=== PATIENT | female | born 1960 | race African-American/Black ===

== ENCOUNTER 2020-01-22 21:30 | Inpatient (IN) | payer MEDICAID ==
[~2020-01-22] VITALS: Ht 165.1 cm; Wt 72.8 kg
[2020-01-22 22:23] LABS: HEMOGLOBIN 8.3 g/dL (12.0-16.0)
[2020-01-22 22:32] LABS: HEMATOCRIT 26.7 % (36-46); MEAN CORPUSCULAR HEMOGLOBIN 29.7 pg (26.0-34.0); MEAN CORPUSCULAR HGB CONC 31.1 G/dL (31.0-37.0); MEAN CORPUSCULAR VOLUME 96 fL (80-100); RED CELL DISTRIBUTION WIDTH 24.5 % (11.5-14.5)
[2020-01-22 22:37] LABS: ALANINE AMINOTRANSFERASE 71 U/L (12-78); ALKALINE PHOSPHATASE 245 U/L (46-116); ANION GAP 13 mmol/L (8-16); ASPARTATE AMINOTRANSFERASE 154 U/L (15-37); BILIRUBIN,TOTAL 5.9 mg/dL (0.1-1.0); CALCIUM, TOTAL 8.8 mg/dL (8.8-10.5); CARBON DIOXIDE 25 mmol/L (22-29); CHLORIDE 85 mmol/L (98-107); CREATININE 2.36 mg/dL (0.60-1.30); GLOMERULAR FILTR. RATE CALC 26 mL/min (>60); INR 2.4 (0.9-1.1); PROTHROMBIN TIME 23.9 SEC (9.4-11.6); TOTAL PROTEIN, SERUM 6.9 g/dL (6.4-8.2); UREA NITROGEN, BLOOD 16 mg/dL (7-18)
[2020-01-22 22:45] LABS: SODIUM SERUM 123 mmol/L (136-145)
[2020-01-22] MEDS ORDERED: MORPHINE SULFATE 4 MG/ML SYRINGE IVP ONE (22:45)
[2020-01-22] MEDS: SODIUM CHLORIDE 0.9% 1,000 ML IV ONE ×2 (22:50→22:54)
[2020-01-22 22:53] LABS: GLUCOSE,RANDOM 1173 mg/dL (70-110)
[2020-01-22 23:12] LABS: LIPASE 609 U/L (73-393)
[2020-01-22 23:26] LABS: PLATELET COUNT (AUTO) 32 K/uL (150-450)
[2020-01-22 23:28] LABS: BAND NEUTROPHILS % (MANUAL) 22 % (0-5); LYMPHOCYTES % (MANUAL) 14 % (22-44); MONOCYTES % (MANUAL) 3 % (2-9); SEGMENTED NEUTROPHILS % 61 % (40-70)
[2020-01-22] MEDS ORDERED: VANCOMYCIN HCL 1 GM/D5% WATER 200 ML IV ONE (23:30)
[2020-01-22] MEDS ORDERED: CefTRIAXone 1 GM/DEXTROSE 50 ML IV ONE (23:30)
[2020-01-22 23:36] LABS: APPEARANCE,URINE CLEAR (CLEAR); BILIRUBIN,URINE NEGATIVE (NEGATIVE); GLUCOSE, URINE (UA) >=1000 mg/dL (NEGATIVE); KETONES,URINE NEGATIVE (NEGATIVE); LEUKOCYTE ESTERASE ,URINE SMALL (NEGATIVE); NITRATE,URINE NEGATIVE (NEGATIVE); OCCULT BLOOD,URINE LARGE (NEGATIVE); PH,URINE 6.5 (5.0-8.0); PROTEIN,URINE NEGATIVE (NEGATIVE)
[2020-01-22 23:44] LABS: BACTERIA,URINE Rare /HPF (None Seen); SQUAMOUS EPITHELIAL CELL,UR Few /LPF (None Seen)
[2020-01-22] MEDS ORDERED: SODIUM CHLORIDE 0.9% 1,000 ML IV ONE (23:45)
[2020-01-23] VITALS (12 sets, daily range): BP systolic 70–163; BP diastolic 38–71
[2020-01-23 01:10] LABS: LACTIC ACID 7.1 mmol/L (0.4-2.0)
[2020-01-23] MEDS ORDERED: INSULIN REGULAR, HUMAN 100 UNITS/ML IVP ONE ×2 (01:30→03:15)
[2020-01-23 01:36] LABS: GLUCOSE,POINT OF CARE > 600 MG/DL (70-110)
[2020-01-23] MEDS ORDERED: SODIUM CHLORIDE 0.45% 1,000 ML IV PRN (03:06)
[2020-01-23] MEDS ORDERED: SODIUM CHLORIDE 0.9% 1,000 ML IV SCH (03:06)
[2020-01-23] MEDS ORDERED: POTASSIUM CHL 20 MEQ/0.45% NS 1,000 ML IV PRN (03:06)
[2020-01-23] MEDS ORDERED: INSULIN REGULAR, HUMAN 100 UNITS in SODIUM CHLORIDE 0.9% 99 ML IV PRN ×4 (03:06→05:11)
[2020-01-23] MEDS ORDERED: DEXTROSE 5%-0.45% SODIUM CHL 1,000 ML IV PRN (03:06)
[2020-01-23] MEDS ORDERED: POTASSIUM CHLORIDE 40 MEQ in SODIUM CHLORIDE 0.45% 1,000 ML IV PRN (03:06)
[2020-01-23] MEDS ORDERED: INSULIN REGULAR, HUMAN 100 UNITS/ML IVP PRN (03:15)
[2020-01-23] MEDS ORDERED: ACETAMINOPHEN 325 MG TABLET PO PRN ×2 (03:15→04:15)
[2020-01-23] MEDS ORDERED: ONDANSETRON HCL 4 MG/2 ML VIAL IVP PRN ×2 (03:15→04:15)
[2020-01-23] MEDS ORDERED: 0.9% SODIUM CHLORIDE 10 ML SYRINGE IVP PRN ×2 (03:15→04:15)
[2020-01-23] MEDS ORDERED: DEXTROSE 50%-WATER 25 GM/50 ML SYRINGE IVP PRN ×4 (03:15→17:00)
[2020-01-23] MEDS ORDERED: MAGNESIUM HYDROXIDE SUSPENSION 30 ML UDCUP PO PRN (04:15)
[2020-01-23 04:35] LABS: GLUCOSE,POINT OF CARE > 600 MG/DL (70-110)
[2020-01-23] MEDS: LEVOFLOXACIN 500 MG/D5% WATER 100 ML IV SCH (04:53)
[2020-01-23 04:55] LABS: GLUCOSE,POINT OF CARE > 600 MG/DL (70-110)
[2020-01-23 05:00] LABS: CALCIUM, TOTAL 8.3 mg/dL (8.8-10.5); CREATININE 2.56 mg/dL (0.60-1.30)
[2020-01-23] MEDS ORDERED: DEXTROSE 5%-WATER 1,000 ML IV SCH (05:11)
[2020-01-23] MEDS: PANTOPRAZOLE SODIUM 80 MG in SODIUM CHLORIDE 0.9% 100 ML IV SCH ×2 (05:42→18:18)
[2020-01-23] MEDS ORDERED: POTASSIUM CHLORIDE 20 MEQ ER TABLET PO ONE (06:00)
[2020-01-23 06:47] LABS: GLUCOSE,POINT OF CARE 479 MG/DL (70-110)
[2020-01-23 07:50] LABS: GLUCOSE,POINT OF CARE 415 MG/DL (70-110)
[2020-01-23 08:23] LABS: HEMATOCRIT 21.2 % (36-46); HEMOGLOBIN 7.1 g/dL (12.0-16.0); MEAN CORPUSCULAR HEMOGLOBIN 30.2 pg (26.0-34.0); MEAN CORPUSCULAR HGB CONC 33.4 G/dL (31.0-37.0); MEAN CORPUSCULAR VOLUME 90 fL (80-100); RED BLOOD CELL COUNT(AUTO) 2.35 MIL/uL (4.00-5.20); RED CELL DISTRIBUTION WIDTH 24.2 % (11.5-14.5)
[2020-01-23 08:29] LABS: PLATELET COUNT (AUTO) 19 K/uL (150-450)
[2020-01-23 08:43] LABS: CALCIUM, TOTAL 8.4 mg/dL (8.8-10.5); CREATININE 2.67 mg/dL (0.60-1.30)
[2020-01-23 08:53] LABS: BAND NEUTROPHILS % (MANUAL) 20 % (0-5); LYMPHOCYTES % (MANUAL) 9 % (22-44); MONOCYTES % (MANUAL) 4 % (2-9); SEGMENTED NEUTROPHILS % 67 % (40-70)
[2020-01-23 08:56] LABS: WBC MORPHOLOGY TOXIC GRANULATION
[2020-01-23 08:58] LABS: GLUCOSE,POINT OF CARE 406 MG/DL (70-110)
[2020-01-23] MEDS ORDERED: SODIUM CHLORIDE 0.9% 250 ML IV ONE (09:30)
[2020-01-23] MEDS ORDERED: SODIUM CHLORIDE 0.45% 1,000 ML IV ONE (09:30)
[2020-01-23 09:56] LABS: GLUCOSE,POINT OF CARE 370 MG/DL (70-110)
[2020-01-23] MEDS: OCTREOTIDE ACETATE 500 MCG in DEXTROSE 5%-WATER 97.5 ML IV SCH ×2 (10:32→18:20)
[2020-01-23 10:53] LABS: GLUCOSE,POINT OF CARE 319 MG/DL (70-110)
[2020-01-23] MEDS ORDERED: NOREPINEPHRINE 4 MG/D5%-WATER 250 ML IV PRN (11:11)
[2020-01-23] MEDS ORDERED: POTASSIUM CHL 20 MEQ/0.45% NS 1,000 ML IV ONE (11:15)
[2020-01-23] MEDS ORDERED: INSULIN LISPRO 100 UNITS/ML SQ PRN (11:15)
[2020-01-23] MEDS ORDERED: SODIUM CHLORIDE 0.9% 1,000 ML ONE (11:29)
[2020-01-23 12:30] LABS: CREATININE 2.71 mg/dL (0.60-1.30); MAGNESIUM 1.1 mg/dL (1.80-2.40); PHOSPHORUS 1.5 mg/dL (2.5-4.9)
[2020-01-23] MEDS ORDERED: VASOPRESSIN 40 UNITS in DEXTROSE 5%-WATER 98 ML IV PRN ×4 (14:00)
[2020-01-23] MEDS ORDERED: PHENYLEPHRINE HCL 400 MG in DEXTROSE 5%-WATER 210 ML IV PRN ×4 (14:00)
[2020-01-23 16:40] LABS: ALBUMIN 1.8 g/dL (3.4-5.0); BILIRUBIN,TOTAL 5.3 mg/dL (0.1-1.0); CALCIUM, TOTAL 8.1 mg/dL (8.8-10.5); CREATININE 2.9 mg/dL (0.60-1.30); POTASSIUM 4.8 mmol/L (3.5-5.1); TOTAL PROTEIN, SERUM 6.1 g/dL (6.4-8.2)
[2020-01-23] MEDS: INSULIN LISPRO 100 UNITS/ML SQ PRN (17:07)
[2020-01-23] MEDS: OxyCODONE HCL/ACETAMINOPHEN 5-325 MG TABLET PO PRN ×2 (17:24→21:47)
[2020-01-23 17:39] LABS: GLUCOSE,POINT OF CARE 292 MG/DL (70-110)
[2020-01-23] MEDS: ALBUMIN HUMAN 25%-25GM/100ML 100 ML IV SCH (21:47)
[2020-01-23] MEDS: SODIUM CHLORIDE 0.9% 1,000 ML IV SCH (21:48)
[2020-01-23 23:48] LABS: APPEARANCE,URINE TURBID (CLEAR); GLUCOSE, URINE (UA) 100 mg/dL (NEGATIVE); KETONES,URINE 15 mg/dL (NEGATIVE); LEUKOCYTE ESTERASE ,URINE LARGE (NEGATIVE); NITRATE,URINE POSITIVE (NEGATIVE); OCCULT BLOOD,URINE LARGE (NEGATIVE); PROTEIN,URINE SEE CONFIRM (NEGATIVE)
[2020-01-23 23:49] LABS: BILIRUBIN,URINE PRELIM. POSITIVE (NEGATIVE); CREATININE,URINE RANDOM 237.5 mg/dL (30.0-125.0); SODIUM,URINE RANDOM 22 mmol/l (20-110)
[2020-01-23 23:57] LABS: BACTERIA,URINE Moderate /HPF (None Seen); RBC,URINE 26-50 /HPF (0-2); WBC,URINE 26-50 /HPF (0-5)
[2020-01-23 23:58] LABS: SQUAMOUS EPITHELIAL CELL,UR Moderate /LPF (None Seen); SULFOSALICYLIC ACID,URINE 1+ (Negative)
[2020-01-24] VITALS (25 sets, daily range): BP systolic 97–142; BP diastolic 36–70
[2020-01-24] MEDS: CefTRIAXone 1 GM/DEXTROSE 50 ML IV SCH ×2 (00:28→22:45)
[2020-01-24] MEDS: INSULIN LISPRO 100 UNITS/ML SQ PRN ×4 (01:35→20:06)
[2020-01-24] MEDS: PANTOPRAZOLE SODIUM 80 MG in SODIUM CHLORIDE 0.9% 100 ML IV SCH ×3 (02:50→20:09)
[2020-01-24] MEDS: ALBUMIN HUMAN 25%-25GM/100ML 100 ML IV SCH ×4 (02:50→20:08)
[2020-01-24 04:29] LABS: GLUCOSE,POINT OF CARE 222 MG/DL (70-110)
[2020-01-24] MEDS: LEVOFLOXACIN 500 MG/D5% WATER 100 ML IV SCH (05:41)
[2020-01-24 06:19] LABS: CALCIUM, TOTAL 7.4 mg/dL (8.8-10.5); CREATININE 2.95 mg/dL (0.60-1.30); POTASSIUM 3.6 mmol/L (3.5-5.1)
[2020-01-24 06:57] LABS: BASOPHILS % (AUTO) 0.3 % (0.0-2.0); EOSINOPHILS % (AUTO) 1.2 % (1.0-6.0); LYMPHOCYTES # (AUTO) 1.9 K/uL (1.0-4.8); LYMPHOCYTES % (AUTO) 17.7 % (22.0-44.0); MEAN CORPUSCULAR HEMOGLOBIN 30.4 pg (26.0-34.0); MEAN CORPUSCULAR HGB CONC 34.8 G/dL (31.0-37.0); MEAN CORPUSCULAR VOLUME 88 fL (80-100); MONOCYTES # (AUTO) 0.7 K/uL (0.1-1.0); MONOCYTES % (AUTO) 6.7 % (2.0-9.0); NEUTROPHILS # (AUTO) 7.9 K/uL (1.8-7.7); NEUTROPHILS % (AUTO) 74.1 % (40.0-70.0); PLATELET COUNT (AUTO) 25 K/uL (150-450); RED BLOOD CELL COUNT(AUTO) 2.26 MIL/uL (4.00-5.20); RED CELL DISTRIBUTION WIDTH 22.6 % (11.5-14.5)
[2020-01-24 07:00] LABS: GLUCOSE,POINT OF CARE 201 MG/DL (70-110)
[2020-01-24 07:01] LABS: HEMATOCRIT 19.7 % (36-46); HEMOGLOBIN 6.9 g/dL (12.0-16.0)
[2020-01-24] MEDS: OCTREOTIDE ACETATE 500 MCG in DEXTROSE 5%-WATER 97.5 ML IV SCH ×2 (07:30→16:10)
[2020-01-24] MEDS ORDERED: SODIUM CHLORIDE 0.9% 250 ML IV ONE ×2 (08:33→22:56)
[2020-01-24 08:37] LABS: INR 3.1 (0.9-1.1); PROTHROMBIN TIME 30.8 SEC (9.4-11.6)
[2020-01-24] MEDS: OxyCODONE HCL/ACETAMINOPHEN 5-325 MG TABLET PO PRN ×3 (08:38→22:45)
[2020-01-24] MEDS: SODIUM CHLORIDE 0.9% 1,000 ML IV SCH (09:30)
[2020-01-24 14:49] LABS: GLUCOSE,POINT OF CARE 132 MG/DL (70-110)
[2020-01-24 14:49] LABS: GLUCOSE,POINT OF CARE 150 MG/DL (70-110)
[2020-01-24] MEDS: PHYTONADIONE 10 MG/1 ML AMP SQ SCH (16:12)
[2020-01-24] MEDS ORDERED: LORazepam 2 MG/ML VIAL IVP ONE (16:30)
[2020-01-24 20:19] LABS: GLUCOSE,POINT OF CARE 145 MG/DL (70-110)
[2020-01-24 20:21] LABS: BASOPHILS % (AUTO) 0.5 % (0.0-2.0); EOSINOPHILS % (AUTO) 1.4 % (1.0-6.0); HEMATOCRIT 21.7 % (36-46); HEMOGLOBIN 7.5 g/dL (12.0-16.0); LYMPHOCYTES # (AUTO) 1.1 K/uL (1.0-4.8); LYMPHOCYTES % (AUTO) 16.1 % (22.0-44.0); MEAN CORPUSCULAR HEMOGLOBIN 30.5 pg (26.0-34.0); MEAN CORPUSCULAR HGB CONC 34.5 G/dL (31.0-37.0); MEAN CORPUSCULAR VOLUME 88 fL (80-100); MONOCYTES # (AUTO) 0.8 K/uL (0.1-1.0); MONOCYTES % (AUTO) 11.9 % (2.0-9.0); NEUTROPHILS # (AUTO) 4.9 K/uL (1.8-7.7); NEUTROPHILS % (AUTO) 70.1 % (40.0-70.0); RED BLOOD CELL COUNT(AUTO) 2.45 MIL/uL (4.00-5.20); RED CELL DISTRIBUTION WIDTH 20.9 % (11.5-14.5)
[2020-01-24 20:28] LABS: PLATELET COUNT (AUTO) 19 K/uL (150-450)
[2020-01-24 21:36] LABS: HEMOGLOBIN 6.8 g/dL (12.0-16.0)
[2020-01-25] VITALS (18 sets, daily range): BP systolic 112–155; BP diastolic 50–78
[2020-01-25] MEDS: OCTREOTIDE ACETATE 500 MCG in DEXTROSE 5%-WATER 97.5 ML IV SCH ×2 (03:35→09:27)
[2020-01-25] MEDS: SODIUM CHLORIDE 0.9% 1,000 ML IV SCH ×2 (03:38→14:31)
[2020-01-25] MEDS: ALBUMIN HUMAN 25%-25GM/100ML 100 ML IV SCH ×4 (03:39→19:47)
[2020-01-25] MEDS: INSULIN LISPRO 100 UNITS/ML SQ PRN ×3 (05:06→21:21)
[2020-01-25] MEDS: LEVOFLOXACIN 500 MG/D5% WATER 100 ML IV SCH (05:10)
[2020-01-25] MEDS ORDERED: EPHEDrine SULFATE 50 MG/ML VIAL IM ONE (05:55)
[2020-01-25] MEDS ORDERED: PROPOFOL 1% 20 ML VIAL IVP ONE (05:55)
[2020-01-25] MEDS ORDERED: 0.9% SODIUM CHLORIDE 10 ML VIAL IVP ONE (05:55)
[2020-01-25] MEDS ORDERED: PHENYLEPHRINE HCL 10 MG/ML VIAL IVP ONE (05:55)
[2020-01-25] MEDS ORDERED: LIDOCAINE 1% 10 ML VIAL IM ONE (05:55)
[2020-01-25 06:03] LABS: GLUCOSE,POINT OF CARE 149 MG/DL (70-110)
[2020-01-25 06:24] LABS: BASOPHILS % (AUTO) 0.1 % (0.0-2.0); HEMATOCRIT 21.6 % (36-46); HEMOGLOBIN 7.4 g/dL (12.0-16.0); LYMPHOCYTES # (AUTO) 1.2 K/uL (1.0-4.8); LYMPHOCYTES % (AUTO) 16.3 % (22.0-44.0); MEAN CORPUSCULAR HEMOGLOBIN 30.3 pg (26.0-34.0); MEAN CORPUSCULAR VOLUME 89 fL (80-100); MONOCYTES # (AUTO) 1.2 K/uL (0.1-1.0); MONOCYTES % (AUTO) 15.2 % (2.0-9.0); NEUTROPHILS # (AUTO) 5.2 K/uL (1.8-7.7); NEUTROPHILS % (AUTO) 67.4 % (40.0-70.0); PLATELET COUNT (AUTO) 37 K/uL (150-450); RED BLOOD CELL COUNT(AUTO) 2.43 MIL/uL (4.00-5.20); RED CELL DISTRIBUTION WIDTH 19.6 % (11.5-14.5)
[2020-01-25 06:33] LABS: CREATININE 1.82 mg/dL (0.60-1.30); POTASSIUM 3.3 mmol/L (3.5-5.1)
[2020-01-25 06:47] LABS: INR 2.6 (0.9-1.1); PROTHROMBIN TIME 26.1 SEC (9.4-11.6)
[2020-01-25] MEDS: OxyCODONE HCL/ACETAMINOPHEN 5-325 MG TABLET PO PRN ×3 (06:52→19:46)
[2020-01-25] MEDS: PANTOPRAZOLE SODIUM 80 MG in SODIUM CHLORIDE 0.9% 100 ML IV SCH ×2 (07:42→15:34)
[2020-01-25] MEDS: PHYTONADIONE 10 MG/1 ML AMP SQ SCH (09:26)
[2020-01-25] MEDS ORDERED: *CLINICAL-RENAL DOSING MEDICATIONS CLINICAL ONE (10:15)
[2020-01-25] MEDS: POTASSIUM CHL 10 MEQ/WATER 50 ML IV SCH ×4 (10:31→18:29)
[2020-01-25] MEDS ORDERED: SODIUM CHLORIDE 0.9% 250 ML IV ONE ×2 (10:32→22:18)
[2020-01-25] MEDS: PIPERACILLIN SODIUM/TAZOBACTAM 2.25 GM in DEXTROSE 5%-WATER 50 ML IV SCH ×3 (10:44→21:55)
[2020-01-25] MEDS: RIFAXIMIN 550 MG TABLET PO SCH ×2 (12:27→19:46)
[2020-01-25] MEDS ORDERED: SODIUM CHLORIDE 0.9% 100 ML ONE (14:29)
[2020-01-25 15:55] LABS: ALBUMIN 3.5 g/dL (3.4-5.0); BILIRUBIN,TOTAL 4.7 mg/dL (0.1-1.0); CALCIUM, TOTAL 6.6 mg/dL (8.8-10.5); CREATININE 1.48 mg/dL (0.60-1.30); POTASSIUM 3.3 mmol/L (3.5-5.1); TOTAL PROTEIN, SERUM 6.1 g/dL (6.4-8.2)
[2020-01-25] MEDS: DOCUSATE SODIUM 100 MG CAPSULE PO SCH (20:44)
[2020-01-25] MEDS: SUCRALFATE 1 GM/10 ML SUSPENSION UDCUP PO SCH (21:20)
[2020-01-26] VITALS (9 sets, daily range): BP systolic 134–181; BP diastolic 53–88
[2020-01-26 00:49] LABS: GLUCOSE,POINT OF CARE 151 MG/DL (70-110)
[2020-01-26] MEDS: OCTREOTIDE ACETATE 500 MCG in DEXTROSE 5%-WATER 97.5 ML IV SCH ×2 (01:32→11:20)
[2020-01-26] MEDS: PANTOPRAZOLE SODIUM 80 MG in SODIUM CHLORIDE 0.9% 100 ML IV SCH ×2 (02:06→11:42)
[2020-01-26] MEDS: OxyCODONE HCL/ACETAMINOPHEN 5-325 MG TABLET PO PRN ×4 (02:48→20:55)
[2020-01-26] MEDS: PIPERACILLIN SODIUM/TAZOBACTAM 2.25 GM in DEXTROSE 5%-WATER 50 ML IV SCH ×2 (04:08→11:19)
[2020-01-26] MEDS: SODIUM CHLORIDE 0.9% 1,000 ML IV SCH (04:09)
[2020-01-26] MEDS: LEVOFLOXACIN 500 MG/D5% WATER 100 ML IV SCH (04:49)
[2020-01-26] MEDS: INSULIN LISPRO 100 UNITS/ML SQ PRN ×2 (04:50→21:09)
[2020-01-26] MEDS ORDERED: SODIUM CHLORIDE 0.9% 500 ML IV ONE (05:03)
[2020-01-26 05:06] LABS: BASOPHILS % (AUTO) 0.5 % (0.0-2.0); EOSINOPHILS % (AUTO) 0.9 % (1.0-6.0); HEMATOCRIT 22.4 % (36-46); HEMOGLOBIN 7.5 g/dL (12.0-16.0); LYMPHOCYTES # (AUTO) 1.2 K/uL (1.0-4.8); LYMPHOCYTES % (AUTO) 13.6 % (22.0-44.0); MEAN CORPUSCULAR HEMOGLOBIN 30.2 pg (26.0-34.0); MEAN CORPUSCULAR HGB CONC 33.7 G/dL (31.0-37.0); MEAN CORPUSCULAR VOLUME 90 fL (80-100); MONOCYTES # (AUTO) 1.3 K/uL (0.1-1.0); MONOCYTES % (AUTO) 15.7 % (2.0-9.0); NEUTROPHILS # (AUTO) 5.9 K/uL (1.8-7.7); NEUTROPHILS % (AUTO) 69.3 % (40.0-70.0); PLATELET COUNT (AUTO) 27 K/uL (150-450); RED BLOOD CELL COUNT(AUTO) 2.49 MIL/uL (4.00-5.20); RED CELL DISTRIBUTION WIDTH 20.3 % (11.5-14.5)
[2020-01-26] MEDS: SUCRALFATE 1 GM/10 ML SUSPENSION UDCUP PO SCH ×4 (05:28→23:26)
[2020-01-26 05:37] LABS: ALBUMIN 3.1 g/dL (3.4-5.0); BILIRUBIN,TOTAL 5.2 mg/dL (0.1-1.0); CALCIUM, TOTAL 7.1 mg/dL (8.8-10.5); CREATININE 1.34 mg/dL (0.60-1.30); MAGNESIUM 1.2 mg/dL (1.80-2.40); PHOSPHORUS 1.8 mg/dL (2.5-4.9); POTASSIUM 3.4 mmol/L (3.5-5.1); TOTAL PROTEIN, SERUM 5.7 g/dL (6.4-8.2)
[2020-01-26 07:14] LABS: GLUCOSE,POINT OF CARE 152 MG/DL (70-110)
[2020-01-26] MEDS: DOCUSATE SODIUM 100 MG CAPSULE PO SCH ×2 (08:33→21:00)
[2020-01-26] MEDS: RIFAXIMIN 550 MG TABLET PO SCH ×2 (08:33→20:55)
[2020-01-26] MEDS: ALBUMIN HUMAN 25%-25GM/100ML 100 ML IV SCH ×3 (08:35→16:00)
[2020-01-26] MEDS ORDERED: SODIUM PHOS,M-BASIC-D-BASIC 30 MMOL in DEXTROSE 5%-WATER 250 ML IV ONE (09:00)
[2020-01-26] MEDS ORDERED: MAGNESIUM SULFATE 4 GM/WATER 100 ML IV ONE (09:00)
[2020-01-26] MEDS: PHYTONADIONE 10 MG/1 ML AMP SQ SCH (09:00)
[2020-01-26 09:19] LABS: GLUCOSE,POINT OF CARE 143 MG/DL (70-110)
[2020-01-26] MEDS ORDERED: SODIUM CHLORIDE 0.9% 100 ML ONE ×2 (09:59→16:33)
[2020-01-26] MEDS ORDERED: POTASSIUM CHLORIDE 20 MEQ ER TABLET PO ONE (10:00)
[2020-01-26] MEDS ORDERED: FUROSEMIDE 40 MG/4 ML VIAL IVP ONE (10:00)
[2020-01-26] MEDS ORDERED: LABETALOL HCL 5 MG/ML 20 ML VIAL IVP PRN (13:00)
[2020-01-26 13:14] LABS: CREATININE 1.34 mg/dL (0.60-1.30); POTASSIUM 3.2 mmol/L (3.5-5.1)
[2020-01-26 13:15] LABS: ALBUMIN 3.3 g/dL (3.4-5.0); CALCIUM, TOTAL 7.4 mg/dL (8.8-10.5); TOTAL PROTEIN, SERUM 6.2 g/dL (6.4-8.2)
[2020-01-26] MEDS: PANTOPRAZOLE SODIUM 40 MG/VIAL IVP SCH ×2 (14:32→20:55)
[2020-01-26] MEDS ORDERED: IOVERSOL 350 MG/ML 100 ML VIAL ONE (16:34)
[2020-01-26] MEDS: PIPERACILLIN/TAZO 3.375 GM/D5W 50 ML IV SCH ×2 (18:22→23:26)
[2020-01-26] MEDS: ChlordiazePOXIDE HCL 10 MG CAPSULE PO PRN (21:02)
[2020-01-27] VITALS (12 sets, daily range): BP systolic 130–155; BP diastolic 50–73
[2020-01-27] MEDS: OxyCODONE HCL/ACETAMINOPHEN 5-325 MG TABLET PO PRN ×5 (02:21→23:55)
[2020-01-27 03:46] LABS: GLUCOSE,POINT OF CARE 181 MG/DL (70-110)
[2020-01-27] MEDS: LEVOFLOXACIN 500 MG/D5% WATER 100 ML IV SCH (05:20)
[2020-01-27] MEDS: PIPERACILLIN/TAZO 3.375 GM/D5W 50 ML IV SCH ×4 (05:53→23:19)
[2020-01-27] MEDS: SUCRALFATE 1 GM/10 ML SUSPENSION UDCUP PO SCH ×4 (05:53→21:04)
[2020-01-27 07:17] LABS: CALCIUM, TOTAL 7.2 mg/dL (8.8-10.5); CREATININE 1.36 mg/dL (0.60-1.30)
[2020-01-27 07:21] LABS: GLUCOSE,POINT OF CARE 133 MG/DL (70-110)
[2020-01-27 07:25] LABS: POTASSIUM 2.9 mmol/L (3.5-5.1)
[2020-01-27] MEDS: DOCUSATE SODIUM 100 MG CAPSULE PO SCH ×2 (09:00→21:00)
[2020-01-27] MEDS ORDERED: FUROSEMIDE 40 MG/4 ML VIAL IVP ONE (09:00)
[2020-01-27] MEDS: RIFAXIMIN 550 MG TABLET PO SCH ×2 (09:46→21:04)
[2020-01-27] MEDS: PANTOPRAZOLE SODIUM 40 MG/VIAL IVP SCH ×2 (09:47→21:04)
[2020-01-27] MEDS: PHYTONADIONE 10 MG/1 ML AMP SQ SCH (09:47)
[2020-01-27] MEDS: POTASSIUM CHL 10 MEQ/WATER 50 ML IV SCH ×10 (09:50→23:19)
[2020-01-27 10:00] LABS: BASOPHILS % (AUTO) 0.3 % (0.0-2.0); EOSINOPHILS % (AUTO) 1.2 % (1.0-6.0); HEMATOCRIT 23.3 % (36-46); HEMOGLOBIN 7.7 g/dL (12.0-16.0); LYMPHOCYTES # (AUTO) 2.1 K/uL (1.0-4.8); LYMPHOCYTES % (AUTO) 17.3 % (22.0-44.0); MEAN CORPUSCULAR HEMOGLOBIN 30.1 pg (26.0-34.0); MEAN CORPUSCULAR HGB CONC 33.2 G/dL (31.0-37.0); MEAN CORPUSCULAR VOLUME 91 fL (80-100); MONOCYTES % (AUTO) 16.8 % (2.0-9.0); NEUTROPHILS # (AUTO) 7.6 K/uL (1.8-7.7); NEUTROPHILS % (AUTO) 64.4 % (40.0-70.0); PLATELET COUNT (AUTO) 65 K/uL (150-450); RED BLOOD CELL COUNT(AUTO) 2.57 MIL/uL (4.00-5.20); RED CELL DISTRIBUTION WIDTH 19.9 % (11.5-14.5)
[2020-01-27 16:15] LABS: GLUCOSE,POINT OF CARE 136 MG/DL (70-110)
[2020-01-27] MEDS: INSULIN LISPRO 100 UNITS/ML SQ PRN (20:05)
[2020-01-28] VITALS (10 sets, daily range): BP systolic 115–169; BP diastolic 45–72
[2020-01-28] MEDS: LEVOFLOXACIN 500 MG/D5% WATER 100 ML IV SCH (05:08)
[2020-01-28] MEDS: PIPERACILLIN/TAZO 3.375 GM/D5W 50 ML IV SCH ×4 (05:24→23:34)
[2020-01-28 05:52] LABS: BASOPHILS % (AUTO) 0.3 % (0.0-2.0); EOSINOPHILS % (AUTO) 1.3 % (1.0-6.0); HEMATOCRIT 23.1 % (36-46); HEMOGLOBIN 7.8 g/dL (12.0-16.0); LYMPHOCYTES # (AUTO) 2.8 K/uL (1.0-4.8); LYMPHOCYTES % (AUTO) 18.9 % (22.0-44.0); MEAN CORPUSCULAR HEMOGLOBIN 30.4 pg (26.0-34.0); MEAN CORPUSCULAR HGB CONC 33.6 G/dL (31.0-37.0); MEAN CORPUSCULAR VOLUME 90 fL (80-100); MONOCYTES # (AUTO) 1.8 K/uL (0.1-1.0); MONOCYTES % (AUTO) 12.5 % (2.0-9.0); NEUTROPHILS # (AUTO) 9.8 K/uL (1.8-7.7); PLATELET COUNT (AUTO) 76 K/uL (150-450); RED BLOOD CELL COUNT(AUTO) 2.55 MIL/uL (4.00-5.20); RED CELL DISTRIBUTION WIDTH 21.1 % (11.5-14.5)
[2020-01-28 06:01] LABS: CALCIUM, TOTAL 7.3 mg/dL (8.8-10.5); CREATININE 1.47 mg/dL (0.60-1.30); POTASSIUM 3.3 mmol/L (3.5-5.1)
[2020-01-28 06:13] LABS: PLATELET MORPHOLOGY COMMENT LARGE PLTS PRESENT
[2020-01-28] MEDS: SUCRALFATE 1 GM/10 ML SUSPENSION UDCUP PO SCH ×4 (06:30→20:04)
[2020-01-28 06:45] LABS: GLUCOSE,POINT OF CARE 208 MG/DL (70-110)
[2020-01-28 06:46] LABS: GLUCOSE,POINT OF CARE 170 MG/DL (70-110)
[2020-01-28] MEDS ORDERED: DIATRIZOATE MEGLU/SOD 660/100 MG/ML 120 ML BOTTLE ONE (07:51)
[2020-01-28] MEDS: DOCUSATE SODIUM 100 MG CAPSULE PO SCH ×2 (09:00→19:50)
[2020-01-28] MEDS: PANTOPRAZOLE SODIUM 40 MG/VIAL IVP SCH ×2 (09:53→20:04)
[2020-01-28] MEDS: PHYTONADIONE 10 MG/1 ML AMP SQ SCH (09:54)
[2020-01-28] MEDS: RIFAXIMIN 550 MG TABLET PO SCH ×2 (09:55→20:04)
[2020-01-28] MEDS: POTASSIUM CHL 10 MEQ/WATER 50 ML IV SCH ×3 (10:22→11:46)
[2020-01-28] MEDS: OxyCODONE HCL/ACETAMINOPHEN 5-325 MG TABLET PO PRN ×3 (10:51→20:04)
[2020-01-28] MEDS: INSULIN LISPRO 100 UNITS/ML SQ PRN ×2 (11:56→20:09)
[2020-01-28 12:37] LABS: GLUCOSE,POINT OF CARE 172 MG/DL (70-110)
[2020-01-28] MEDS ORDERED: SODIUM CHLORIDE 0.9% 250 ML IV ONE (16:12)
[2020-01-28 22:31] LABS: GLUCOSE,POINT OF CARE 204 MG/DL (70-110)
[2020-01-28] MEDS: ChlordiazePOXIDE HCL 10 MG CAPSULE PO PRN (23:34)
[2020-01-29] VITALS (24 sets, daily range): BP systolic 112–172; BP diastolic 45–100
[2020-01-29] MEDS: LEVOFLOXACIN 500 MG/D5% WATER 100 ML IV SCH (04:17)
[2020-01-29] MEDS: INSULIN LISPRO 100 UNITS/ML SQ PRN ×3 (04:50→20:04)
[2020-01-29 04:52] LABS: GLUCOSE,POINT OF CARE 144 MG/DL (70-110)
[2020-01-29] MEDS: SUCRALFATE 1 GM/10 ML SUSPENSION UDCUP PO SCH ×4 (05:30→21:02)
[2020-01-29] MEDS: PIPERACILLIN/TAZO 3.375 GM/D5W 50 ML IV SCH ×3 (05:30→17:19)
[2020-01-29 05:35] LABS: BASOPHILS % (AUTO) 0.4 % (0.0-2.0); EOSINOPHILS % (AUTO) 1.3 % (1.0-6.0); HEMATOCRIT 21.4 % (36-46); HEMOGLOBIN 7.1 g/dL (12.0-16.0); LYMPHOCYTES # (AUTO) 2.5 K/uL (1.0-4.8); LYMPHOCYTES % (AUTO) 17.7 % (22.0-44.0); MEAN CORPUSCULAR HEMOGLOBIN 30.2 pg (26.0-34.0); MEAN CORPUSCULAR HGB CONC 33.1 G/dL (31.0-37.0); MEAN CORPUSCULAR VOLUME 91 fL (80-100); MONOCYTES % (AUTO) 6.8 % (2.0-9.0); NEUTROPHILS # (AUTO) 10.5 K/uL (1.8-7.7); NEUTROPHILS % (AUTO) 73.8 % (40.0-70.0); PLATELET COUNT (AUTO) 70 K/uL (150-450); RED BLOOD CELL COUNT(AUTO) 2.34 MIL/uL (4.00-5.20); RED CELL DISTRIBUTION WIDTH 20.8 % (11.5-14.5)
[2020-01-29 05:47] LABS: INR 2.2 (0.9-1.1); PROTHROMBIN TIME 22.1 SEC (9.4-11.6)
[2020-01-29 05:54] LABS: ALBUMIN 2.3 g/dL (3.4-5.0); BILIRUBIN,TOTAL 4.3 mg/dL (0.1-1.0); CALCIUM, TOTAL 7.1 mg/dL (8.8-10.5); CREATININE 1.21 mg/dL (0.60-1.30); TOTAL PROTEIN, SERUM 5.2 g/dL (6.4-8.2)
[2020-01-29 06:15] LABS: PHOSPHORUS 1.3 mg/dL (2.5-4.9)
[2020-01-29] MEDS: POTASSIUM CHL 10 MEQ/WATER 50 ML IV SCH ×4 (06:36→09:34)
[2020-01-29] MEDS ORDERED: SODIUM PHOS,M-BASIC-D-BASIC 30 MMOL in DEXTROSE 5%-WATER 250 ML IV ONE (07:00)
[2020-01-29] MEDS ORDERED: MAGNESIUM SULFATE 4 GM/WATER 100 ML IV ONE (07:00)
[2020-01-29] MEDS ORDERED: SODIUM CHLORIDE 0.9% 100 ML ONE (07:32)
[2020-01-29] MEDS: DOCUSATE SODIUM 100 MG CAPSULE PO SCH ×3 (09:00→21:02)
[2020-01-29] MEDS: PHYTONADIONE 10 MG/1 ML AMP SQ SCH (09:06)
[2020-01-29] MEDS: PANTOPRAZOLE SODIUM 40 MG/VIAL IVP SCH ×2 (09:06→21:03)
[2020-01-29] MEDS: RIFAXIMIN 550 MG TABLET PO SCH ×2 (09:06→21:02)
[2020-01-29] MEDS: OxyCODONE HCL/ACETAMINOPHEN 5-325 MG TABLET PO PRN ×3 (09:07→22:53)
[2020-01-29] MEDS ORDERED: MAGNESIUM SULFATE 4 GM/WATER 100 ML IV PRN (12:30)
[2020-01-29] MEDS ORDERED: POTASSIUM CHL 10 MEQ/WATER 50 ML IV PRN (12:30)
[2020-01-29] MEDS ORDERED: MAGNESIUM OXIDE 400 MG TABLET PO PRN (12:30)
[2020-01-29] MEDS ORDERED: POTASSIUM CHLORIDE 20 MEQ ER TABLET PO PRN (12:30)
[2020-01-29] MEDS ORDERED: POTASSIUM CHLORIDE 10% 40 MEQ/30 ML LIQUID UDCUP PO PRN (12:30)
[2020-01-29 12:37] LABS: GLUCOSE,POINT OF CARE 146 MG/DL (70-110)
[2020-01-29] MEDS ORDERED: SODIUM CHLORIDE 0.9% 250 ML IV ONE (16:31)
[2020-01-29] MEDS: FUROSEMIDE 40 MG/4 ML VIAL IVP SCH (21:03)
[2020-01-29 22:36] LABS: INR 1.8 (0.9-1.1); PROTHROMBIN TIME 17.8 SEC (9.4-11.6)
[2020-01-30] VITALS (27 sets, daily range): BP systolic 104–162; BP diastolic 44–69
[2020-01-30] MEDS: PIPERACILLIN/TAZO 3.375 GM/D5W 50 ML IV SCH ×4 (00:09→17:06)
[2020-01-30] MEDS ORDERED: SODIUM CHLORIDE 0.9% 250 ML IV ONE (00:44)
[2020-01-30 01:20] LABS: GLUCOSE,POINT OF CARE 278 MG/DL (70-110)
[2020-01-30] MEDS: LEVOFLOXACIN 500 MG/D5% WATER 100 ML IV SCH (05:04)
[2020-01-30 06:11] LABS: GLUCOSE,POINT OF CARE 177 MG/DL (70-110)
[2020-01-30] MEDS: ChlordiazePOXIDE HCL 10 MG CAPSULE PO PRN (09:00)
[2020-01-30] MEDS: SUCRALFATE 1 GM/10 ML SUSPENSION UDCUP PO SCH ×4 (09:17→21:07)
[2020-01-30] MEDS: PANTOPRAZOLE SODIUM 40 MG/VIAL IVP SCH ×2 (09:18→21:07)
[2020-01-30] MEDS: DOCUSATE SODIUM 100 MG CAPSULE PO SCH ×2 (09:18→21:00)
[2020-01-30] MEDS: PHYTONADIONE 10 MG/1 ML AMP SQ SCH (09:19)
[2020-01-30] MEDS: RIFAXIMIN 550 MG TABLET PO SCH ×2 (09:19→21:07)
[2020-01-30 09:46] LABS: BASOPHILS % (AUTO) 0.6 % (0.0-2.0); EOSINOPHILS % (AUTO) 0.7 % (1.0-6.0); LYMPHOCYTES # (AUTO) 1.4 K/uL (1.0-4.8); LYMPHOCYTES % (AUTO) 11.5 % (22.0-44.0); MEAN CORPUSCULAR HGB CONC 34.2 G/dL (31.0-37.0); MEAN CORPUSCULAR VOLUME 91 fL (80-100); MONOCYTES # (AUTO) 0.4 K/uL (0.1-1.0); MONOCYTES % (AUTO) 2.9 % (2.0-9.0); NEUTROPHILS # (AUTO) 10.5 K/uL (1.8-7.7); NEUTROPHILS % (AUTO) 84.3 % (40.0-70.0); PLATELET COUNT (AUTO) 62 K/uL (150-450); RED BLOOD CELL COUNT(AUTO) 2.17 MIL/uL (4.00-5.20); RED CELL DISTRIBUTION WIDTH 22.3 % (11.5-14.5)
[2020-01-30 10:00] LABS: HEMATOCRIT 19.7 % (36-46); HEMOGLOBIN 6.7 g/dL (12.0-16.0)
[2020-01-30 10:01] LABS: ALBUMIN 2.5 g/dL (3.4-5.0); BILIRUBIN,TOTAL 4.6 mg/dL (0.1-1.0); CALCIUM, TOTAL 7.8 mg/dL (8.8-10.5); CREATININE 1.19 mg/dL (0.60-1.30); MAGNESIUM 1.3 mg/dL (1.80-2.40); PHOSPHORUS 1.7 mg/dL (2.5-4.9); TOTAL PROTEIN, SERUM 5.7 g/dL (6.4-8.2)
[2020-01-30 10:02] LABS: POTASSIUM 2.6 mmol/L (3.5-5.1)
[2020-01-30 10:15] LABS: INR 1.7 (0.9-1.1); PROTHROMBIN TIME 16.9 SEC (9.4-11.6)
[2020-01-30] MEDS ORDERED: MAGNESIUM SULFATE 4 GM/WATER 100 ML IV ONE (10:30)
[2020-01-30] MEDS ORDERED: SODIUM CHLORIDE 0.9% 500 ML IV ONE (10:34)
[2020-01-30] MEDS: OxyCODONE HCL/ACETAMINOPHEN 5-325 MG TABLET PO PRN ×3 (11:36→21:11)
[2020-01-30] MEDS: POTASSIUM CHL 10 MEQ/WATER 50 ML IV SCH ×4 (13:58→17:33)
[2020-01-30] MEDS ORDERED: ATROPINE SULFATE 0.1 MG/ML 10 ML SYRINGE IVP ONE (17:36)
[2020-01-30 17:59] LABS: HEMATOCRIT 25.3 % (36-46); HEMOGLOBIN 8.5 g/dL (12.0-16.0)
[2020-01-30 18:07] LABS: CALCIUM, TOTAL 7.6 mg/dL (8.8-10.5); CREATININE 1.14 mg/dL (0.60-1.30)
[2020-01-30 19:04] LABS: FIBRINOGEN 171 mg/dL (200-400)
[2020-01-30 19:51] LABS: GLUCOSE,POINT OF CARE 217 MG/DL (70-110)
[2020-01-30 20:41] LABS: INR 1.8 (0.9-1.1); PROTHROMBIN TIME 18.3 SEC (9.4-11.6)
[2020-01-30 20:48] LABS: ALBUMIN 2.7 g/dL (3.4-5.0); BILIRUBIN,TOTAL 4.9 mg/dL (0.1-1.0); CALCIUM, TOTAL 7.7 mg/dL (8.8-10.5); CREATININE 1.23 mg/dL (0.60-1.30); TOTAL PROTEIN, SERUM 5.8 g/dL (6.4-8.2)
[2020-01-30 20:50] LABS: POTASSIUM 2.8 mmol/L (3.5-5.1)
[2020-01-30] MEDS: FUROSEMIDE 40 MG/4 ML VIAL IVP SCH (21:07)
[2020-01-30] MEDS: POTASSIUM CHL 10 MEQ/WATER 50 ML IV PRN (21:54)
[2020-01-30] MEDS: INSULIN LISPRO 100 UNITS/ML SQ PRN (21:56)
[2020-01-30] MEDS ORDERED: SODIUM PHOS,M-BASIC-D-BASIC 30 MMOL in DEXTROSE 5%-WATER 250 ML IV ONE (22:00)
[2020-01-30] MEDS ORDERED: SODIUM CHLORIDE 0.9% 100 ML ONE (22:29)
[2020-01-31] VITALS: BP 120/62
[2020-01-31] MEDS: PIPERACILLIN/TAZO 3.375 GM/D5W 50 ML IV SCH ×4 (00:46→18:02)
[2020-01-31 04:00] VITALS: BP 120/59
[2020-01-31 04:26] LABS: BASOPHILS % (AUTO) 0.5 % (0.0-2.0); EOSINOPHILS % (AUTO) 0.5 % (1.0-6.0); HEMATOCRIT 23.3 % (36-46); LYMPHOCYTES # (AUTO) 1.7 K/uL (1.0-4.8); LYMPHOCYTES % (AUTO) 12.4 % (22.0-44.0); MEAN CORPUSCULAR HEMOGLOBIN 31.3 pg (26.0-34.0); MEAN CORPUSCULAR HGB CONC 34.1 G/dL (31.0-37.0); MEAN CORPUSCULAR VOLUME 92 fL (80-100); MONOCYTES # (AUTO) 0.6 K/uL (0.1-1.0); MONOCYTES % (AUTO) 4.1 % (2.0-9.0); NEUTROPHILS # (AUTO) 11.1 K/uL (1.8-7.7); NEUTROPHILS % (AUTO) 82.5 % (40.0-70.0); PLATELET COUNT (AUTO) 70 K/uL (150-450); RED BLOOD CELL COUNT(AUTO) 2.54 MIL/uL (4.00-5.20); RED CELL DISTRIBUTION WIDTH 19.2 % (11.5-14.5)
[2020-01-31 04:35] LABS: INR 2.1 (0.9-1.1); PROTHROMBIN TIME 20.9 SEC (9.4-11.6)
[2020-01-31 04:43] LABS: ALBUMIN 2.5 g/dL (3.4-5.0); BILIRUBIN,TOTAL 4.6 mg/dL (0.1-1.0); CALCIUM, TOTAL 7.5 mg/dL (8.8-10.5); CREATININE 1.21 mg/dL (0.60-1.30); TOTAL PROTEIN, SERUM 5.5 g/dL (6.4-8.2)
[2020-01-31 04:51] LABS: POTASSIUM 2.9 mmol/L (3.5-5.1)
[2020-01-31] MEDS ORDERED: SODIUM CHLORIDE 0.9% 100 ML ONE ×2 (05:18→15:17)
[2020-01-31] MEDS: LEVOFLOXACIN 500 MG/D5% WATER 100 ML IV SCH (05:20)
[2020-01-31] MEDS: POTASSIUM CHL 10 MEQ/WATER 50 ML IV PRN ×2 (05:21→06:04)
[2020-01-31 05:24] LABS: MAGNESIUM 1.4 mg/dL (1.80-2.40); PHOSPHORUS 2.9 mg/dL (2.5-4.9)
[2020-01-31] MEDS: SUCRALFATE 1 GM/10 ML SUSPENSION UDCUP PO SCH ×4 (06:12→20:34)
[2020-01-31] MEDS: OxyCODONE HCL/ACETAMINOPHEN 5-325 MG TABLET PO PRN ×4 (06:30→20:37)
[2020-01-31] MEDS: INSULIN LISPRO 100 UNITS/ML SQ PRN ×3 (06:46→21:30)
[2020-01-31] MEDS: DOCUSATE SODIUM 100 MG CAPSULE PO SCH ×2 (09:00→20:42)
[2020-01-31] MEDS: MAGNESIUM SULFATE 2 GM/WATER 50 ML IV PRN (09:47)
[2020-01-31] MEDS: RIFAXIMIN 550 MG TABLET PO SCH ×2 (10:00→20:35)
[2020-01-31] MEDS: PANTOPRAZOLE SODIUM 40 MG/VIAL IVP SCH ×2 (10:00→20:34)
[2020-01-31] MEDS: ChlordiazePOXIDE HCL 10 MG CAPSULE PO PRN (10:00)
[2020-01-31] MEDS: PHYTONADIONE 10 MG/1 ML AMP SQ SCH (10:00)
[2020-01-31 12:00] VITALS: BP 135/61
[2020-01-31 12:59] LABS: GLUCOSE,POINT OF CARE 233 MG/DL (70-110)
[2020-01-31 18:41] VITALS: BP 140/67
[2020-01-31 20:00] VITALS: BP 138/62
[2020-01-31] MEDS: FUROSEMIDE 40 MG/4 ML VIAL IVP SCH (20:34)
[2020-01-31] MEDS: DiphenhydrAMINE HCL 25 MG CAPSULE PO PRN (21:33)
[2020-01-31 22:09] LABS: APPEARANCE,URINE CLOUDY (CLEAR); BILIRUBIN,URINE NEGATIVE (NEGATIVE); GLUCOSE, URINE (UA) NEGATIVE (NEGATIVE); KETONES,URINE NEGATIVE (NEGATIVE); LEUKOCYTE ESTERASE ,URINE TRACE (NEGATIVE); NITRATE,URINE NEGATIVE (NEGATIVE); OCCULT BLOOD,URINE LARGE (NEGATIVE); PH,URINE 7.5 (5.0-8.0); PROTEIN,URINE NEGATIVE (NEGATIVE); UROBILINOGEN,URINE 0.2 mg/dL (<=1.0)
[2020-01-31 22:20] LABS: BACTERIA,URINE Few /HPF (None Seen); RBC,URINE 51-100 /HPF (0-2); SQUAMOUS EPITHELIAL CELL,UR Few /LPF (None Seen)
[2020-01-31 23:08] LABS: GLUCOSE,POINT OF CARE 281 MG/DL (70-110)
[2020-02-01] VITALS (12 sets, daily range): BP systolic 109–145; BP diastolic 49–85
[2020-02-01] MEDS: PIPERACILLIN/TAZO 3.375 GM/D5W 50 ML IV SCH ×4 (00:01→18:09)
[2020-02-01] MEDS: OxyCODONE HCL/ACETAMINOPHEN 5-325 MG TABLET PO PRN ×3 (01:59→22:16)
[2020-02-01] MEDS ORDERED: SODIUM CHLORIDE 0.9% 500 ML IV ONE ×2 (05:21→21:47)
[2020-02-01] MEDS: SUCRALFATE 1 GM/10 ML SUSPENSION UDCUP PO SCH ×4 (05:24→21:26)
[2020-02-01 06:08] LABS: GLUCOMETER DEV NAME(LOC) 5S.1; GLUCOSE,POINT OF CARE 139 MG/DL (70-110)
[2020-02-01] MEDS: LEVOFLOXACIN 500 MG/D5% WATER 100 ML IV SCH (06:13)
[2020-02-01 07:12] LABS: BASOPHILS % (AUTO) 0.8 % (0.0-2.0); HEMATOCRIT 24.8 % (36-46); HEMOGLOBIN 8.4 g/dL (12.0-16.0); LYMPHOCYTES # (AUTO) 2.4 K/uL (1.0-4.8); MEAN CORPUSCULAR HEMOGLOBIN 31.4 pg (26.0-34.0); MEAN CORPUSCULAR HGB CONC 34.1 G/dL (31.0-37.0); MEAN CORPUSCULAR VOLUME 92 fL (80-100); MONOCYTES # (AUTO) 0.9 K/uL (0.1-1.0); MONOCYTES % (AUTO) 6.1 % (2.0-9.0); NEUTROPHILS # (AUTO) 10.6 K/uL (1.8-7.7); NEUTROPHILS % (AUTO) 75.1 % (40.0-70.0); RED BLOOD CELL COUNT(AUTO) 2.69 MIL/uL (4.00-5.20); RED CELL DISTRIBUTION WIDTH 20.6 % (11.5-14.5)
[2020-02-01 07:42] LABS: ALANINE AMINOTRANSFERASE 37 U/L (12-78); ALBUMIN 2.5 g/dL (3.4-5.0); ALKALINE PHOSPHATASE 112 U/L (46-116); ANION GAP 6 mmol/L (8-16); ASPARTATE AMINOTRANSFERASE 107 U/L (15-37); BILIRUBIN,TOTAL 5.4 mg/dL (0.1-1.0); CALCIUM, TOTAL 8.2 mg/dL (8.8-10.5); CARBON DIOXIDE 32 mmol/L (22-29); CHLORIDE 101 mmol/L (98-107); CREATININE 1.07 mg/dL (0.60-1.30); GLOMERULAR FILTR. RATE CALC > 60 mL/min (>60); GLUCOSE,RANDOM 144 mg/dL (70-110); POTASSIUM 3.3 mmol/L (3.5-5.1); SODIUM SERUM 139 mmol/L (136-145); TOTAL PROTEIN, SERUM 5.7 g/dL (6.4-8.2); UREA NITROGEN, BLOOD 8 mg/dL (7-18)
[2020-02-01 08:13] LABS: PLATELET COUNT (AUTO) 67 K/uL (150-450)
[2020-02-01] MEDS: DOCUSATE SODIUM 100 MG CAPSULE PO SCH ×2 (09:09→21:26)
[2020-02-01] MEDS: POTASSIUM CHLORIDE 20 MEQ ER TABLET PO PRN (09:11)
[2020-02-01] MEDS: RIFAXIMIN 550 MG TABLET PO SCH ×2 (09:19→21:26)
[2020-02-01] MEDS: PANTOPRAZOLE SODIUM 40 MG/VIAL IVP SCH ×2 (11:06→21:25)
[2020-02-01] MEDS: POTASSIUM CHL 10 MEQ/WATER 50 ML IV SCH ×2 (11:06→12:26)
[2020-02-01] MEDS: PHYTONADIONE 10 MG/1 ML AMP SQ SCH (11:06)
[2020-02-01 12:17] LABS: GLUCOMETER DEV NAME(LOC) 5S.2A; GLUCOSE,POINT OF CARE 208 MG/DL (70-110)
[2020-02-01] MEDS: INSULIN LISPRO 100 UNITS/ML SQ PRN ×2 (12:27→18:12)
[2020-02-01] MEDS: DiphenhydrAMINE HCL 25 MG CAPSULE PO PRN (14:59)
[2020-02-01 17:59] LABS: GLUCOMETER DEV NAME(LOC) 5S.1; GLUCOSE,POINT OF CARE 181 MG/DL (70-110)
[2020-02-01] MEDS: FUROSEMIDE 40 MG/4 ML VIAL IVP SCH (21:25)
[2020-02-02] VITALS (21 sets, daily range): BP systolic 104–150; BP diastolic 47–83
[2020-02-02] MEDS: PIPERACILLIN/TAZO 3.375 GM/D5W 50 ML IV SCH ×5 (00:50→23:50)
[2020-02-02] MEDS: DiphenhydrAMINE HCL 25 MG CAPSULE PO PRN ×2 (00:50→20:38)
[2020-02-02] MEDS: LEVOFLOXACIN 500 MG/D5% WATER 100 ML IV SCH (04:57)
[2020-02-02] MEDS: OxyCODONE HCL/ACETAMINOPHEN 5-325 MG TABLET PO PRN ×3 (05:47→20:38)
[2020-02-02] MEDS: SUCRALFATE 1 GM/10 ML SUSPENSION UDCUP PO SCH ×4 (05:48→20:39)
[2020-02-02 06:42] LABS: GLUCOMETER DEV NAME(LOC) 5S.2A; GLUCOSE,POINT OF CARE 164 MG/DL (70-110)
[2020-02-02 06:42] LABS: GLUCOMETER DEV NAME(LOC) 5S.2A; GLUCOSE,POINT OF CARE 136 MG/DL (70-110)
[2020-02-02 08:21] LABS: BASOPHILS % (AUTO) 1.2 % (0.0-2.0); EOSINOPHILS % (AUTO) 1.1 % (1.0-6.0); HEMATOCRIT 23.2 % (36-46); LYMPHOCYTES # (AUTO) 1.9 K/uL (1.0-4.8); LYMPHOCYTES % (AUTO) 14.4 % (22.0-44.0); MEAN CORPUSCULAR HEMOGLOBIN 31.8 pg (26.0-34.0); MEAN CORPUSCULAR HGB CONC 34.3 G/dL (31.0-37.0); MEAN CORPUSCULAR VOLUME 93 fL (80-100); MONOCYTES # (AUTO) 0.7 K/uL (0.1-1.0); NEUTROPHILS # (AUTO) 10.6 K/uL (1.8-7.7); NEUTROPHILS % (AUTO) 78.3 % (40.0-70.0); PLATELET COUNT (AUTO) 68 K/uL (150-450); RED BLOOD CELL COUNT(AUTO) 2.51 MIL/uL (4.00-5.20); RED CELL DISTRIBUTION WIDTH 20.6 % (11.5-14.5)
[2020-02-02] MEDS: PHYTONADIONE 10 MG/1 ML AMP SQ SCH (08:21)
[2020-02-02] MEDS: RIFAXIMIN 550 MG TABLET PO SCH ×2 (08:21→20:39)
[2020-02-02] MEDS: PANTOPRAZOLE SODIUM 40 MG/VIAL IVP SCH ×2 (08:21→20:39)
[2020-02-02] MEDS: DOCUSATE SODIUM 100 MG CAPSULE PO SCH ×2 (08:21→20:39)
[2020-02-02 08:38] LABS: ALANINE AMINOTRANSFERASE 31 U/L (12-78); ALBUMIN 2.7 g/dL (3.4-5.0); ALKALINE PHOSPHATASE 101 U/L (46-116); ANION GAP 5 mmol/L (8-16); ASPARTATE AMINOTRANSFERASE 72 U/L (15-37); BILIRUBIN,TOTAL 5.5 mg/dL (0.1-1.0); CALCIUM, TOTAL 8.4 mg/dL (8.8-10.5); CARBON DIOXIDE 32 mmol/L (22-29); CHLORIDE 100 mmol/L (98-107); CREATININE 1.11 mg/dL (0.60-1.30); GLOMERULAR FILTR. RATE CALC > 60 mL/min (>60); GLUCOSE,RANDOM 138 mg/dL (70-110); INR 1.9 (0.9-1.1); POTASSIUM 3.4 mmol/L (3.5-5.1); PROTHROMBIN TIME 18.9 SEC (9.4-11.6); SODIUM SERUM 137 mmol/L (136-145); UREA NITROGEN, BLOOD 9 mg/dL (7-18)
[2020-02-02] MEDS ORDERED: MAGNESIUM SULFATE 2 GM/WATER 50 ML IV ONE (10:15)
[2020-02-02] MEDS ORDERED: MAGNESIUM SULFATE 2 GM in DEXTROSE 5%-WATER 50 ML IV ONE (10:15)
[2020-02-02] MEDS ORDERED: SODIUM CHLORIDE 0.9% 1,000 ML IV ONE (10:30)
[2020-02-02] MEDS ORDERED: SODIUM CHLORIDE 0.9% 0 ML ONE (10:32)
[2020-02-02] MEDS ORDERED: LIDOCAINE/PF 1% 30 ML VIAL ONE (11:01)
[2020-02-02] MEDS ORDERED: THROMBIN, BOVINE 20000 UNITS/VIAL POWDER TP ONE (11:01)
[2020-02-02] MEDS ORDERED: GELATIN SPONGE,ABSORBABLE 50 MM TP ONE (11:04)
[2020-02-02] MEDS ORDERED: PHYTONADIONE 5 MG in SODIUM CHLORIDE 0.9% 50 ML IV ONE (11:45)
[2020-02-02] MEDS ORDERED: PROPOFOL 1% 20 ML VIAL IVP ONE (12:00)
[2020-02-02] MEDS ORDERED: SODIUM CHLORIDE 0.9% 250 ML IV ONE (13:47)
[2020-02-02] MEDS: INSULIN LISPRO 100 UNITS/ML SQ PRN ×2 (18:00→22:10)
[2020-02-02 18:58] LABS: GLUCOMETER DEV NAME(LOC) 5S.1; GLUCOSE,POINT OF CARE 183 MG/DL (70-110)
[2020-02-02] MEDS ORDERED: MAGNESIUM SULFATE 2 GM in DEXTROSE 5%-WATER 50 ML IV PRN (19:15)
[2020-02-02] MEDS: FUROSEMIDE 40 MG/4 ML VIAL IVP SCH (20:39)
[2020-02-02] MEDS: POTASSIUM CHLORIDE 20 MEQ ER TABLET PO PRN (22:09)
[2020-02-02] MEDS ORDERED: MIDAZOLAM HCL 2 MG/2 ML VIAL IVP ONE (23:00)
[2020-02-02] MEDS ORDERED: FentaNYL CITRATE-PF 100 MCG/2 ML VIAL IVP ONE (23:00)
[2020-02-03] VITALS (13 sets, daily range): BP systolic 104–142; BP diastolic 43–77
[2020-02-03] MEDS: OxyCODONE HCL/ACETAMINOPHEN 5-325 MG TABLET PO PRN ×3 (03:14→21:07)
[2020-02-03] MEDS: LEVOFLOXACIN 500 MG/D5% WATER 100 ML IV SCH (04:53)
[2020-02-03] MEDS: DiphenhydrAMINE HCL 25 MG CAPSULE PO PRN ×2 (05:03→23:11)
[2020-02-03] MEDS: INSULIN LISPRO 100 UNITS/ML SQ PRN ×3 (05:24→23:13)
[2020-02-03] MEDS: SUCRALFATE 1 GM/10 ML SUSPENSION UDCUP PO SCH ×4 (05:25→21:06)
[2020-02-03 06:00] LABS: BASOPHILS % (AUTO) 0.8 % (0.0-2.0); EOSINOPHILS % (AUTO) 1.2 % (1.0-6.0); HEMATOCRIT 24.7 % (36-46); HEMOGLOBIN 8.1 g/dL (12.0-16.0); LYMPHOCYTES % (AUTO) 14.9 % (22.0-44.0); MEAN CORPUSCULAR HGB CONC 32.9 G/dL (31.0-37.0); MEAN CORPUSCULAR VOLUME 94 fL (80-100); MONOCYTES # (AUTO) 1.3 K/uL (0.1-1.0); MONOCYTES % (AUTO) 9.4 % (2.0-9.0); NEUTROPHILS # (AUTO) 9.8 K/uL (1.8-7.7); NEUTROPHILS % (AUTO) 73.7 % (40.0-70.0); RED BLOOD CELL COUNT(AUTO) 2.63 MIL/uL (4.00-5.20); RED CELL DISTRIBUTION WIDTH 20.9 % (11.5-14.5)
[2020-02-03 06:08] LABS: INR 1.9 (0.9-1.1); PROTHROMBIN TIME 19.1 SEC (9.4-11.6)
[2020-02-03] MEDS: PIPERACILLIN/TAZO 3.375 GM/D5W 50 ML IV SCH ×3 (06:08→18:24)
[2020-02-03 06:13] LABS: ALANINE AMINOTRANSFERASE 32 U/L (12-78); ALBUMIN 2.6 g/dL (3.4-5.0); ALKALINE PHOSPHATASE 108 U/L (46-116); ANION GAP 6 mmol/L (8-16); ASPARTATE AMINOTRANSFERASE 80 U/L (15-37); BILIRUBIN,TOTAL 4.4 mg/dL (0.1-1.0); CALCIUM, TOTAL 8.4 mg/dL (8.8-10.5); CARBON DIOXIDE 31 mmol/L (22-29); CHLORIDE 100 mmol/L (98-107); CREATININE 1.03 mg/dL (0.60-1.30); GLOMERULAR FILTR. RATE CALC > 60 mL/min (>60); GLUCOSE,RANDOM 208 mg/dL (70-110); POTASSIUM 3.8 mmol/L (3.5-5.1); SODIUM SERUM 137 mmol/L (136-145); TOTAL PROTEIN, SERUM 6.2 g/dL (6.4-8.2); UREA NITROGEN, BLOOD 9 mg/dL (7-18)
[2020-02-03 07:17] LABS: PLATELET COUNT (AUTO) 84 K/uL (150-450)
[2020-02-03 07:33] LABS: GLUCOMETER DEV NAME(LOC) 5S.1; GLUCOSE,POINT OF CARE 251 MG/DL (70-110)
[2020-02-03 07:33] LABS: GLUCOMETER DEV NAME(LOC) 5S.1; GLUCOSE,POINT OF CARE 212 MG/DL (70-110)
[2020-02-03] MEDS: PANTOPRAZOLE SODIUM 40 MG/VIAL IVP SCH ×2 (08:46→21:06)
[2020-02-03] MEDS: PHYTONADIONE 10 MG/1 ML AMP SQ SCH (08:46)
[2020-02-03] MEDS: DOCUSATE SODIUM 100 MG CAPSULE PO SCH ×2 (08:52→21:00)
[2020-02-03] MEDS: RIFAXIMIN 550 MG TABLET PO SCH ×2 (08:52→21:06)
[2020-02-03] MEDS ORDERED: DIATRIZOATE MEGLU/SOD 660/100 MG/ML 120 ML BOTTLE ONE (10:13)
[2020-02-03] MEDS: MAGNESIUM SULFATE 2 GM/WATER 50 ML IV PRN (14:29)
[2020-02-03] MEDS ORDERED: SODIUM CHLORIDE 0.9% 250 ML IV ONE (17:00)
[2020-02-03 18:34] LABS: GLUCOMETER DEV NAME(LOC) 5S.2A; GLUCOSE,POINT OF CARE 165 MG/DL (70-110)
[2020-02-03 18:34] LABS: GLUCOMETER DEV NAME(LOC) 5S.2A; GLUCOSE,POINT OF CARE 104 MG/DL (70-110)
[2020-02-03] MEDS: FUROSEMIDE 40 MG/4 ML VIAL IVP SCH (21:06)
[2020-02-04] VITALS (8 sets, daily range): BP systolic 113–137; BP diastolic 43–69
[2020-02-04] MEDS: PIPERACILLIN/TAZO 3.375 GM/D5W 50 ML IV SCH ×5 (00:45→23:41)
[2020-02-04] MEDS: LEVOFLOXACIN 500 MG/D5% WATER 100 ML IV SCH (05:45)
[2020-02-04] MEDS: SUCRALFATE 1 GM/10 ML SUSPENSION UDCUP PO SCH ×4 (05:48→20:53)
[2020-02-04] MEDS: OxyCODONE HCL/ACETAMINOPHEN 5-325 MG TABLET PO PRN ×4 (05:48→23:51)
[2020-02-04 07:06] LABS: GLUCOMETER DEV NAME(LOC) 5S.2A; GLUCOSE,POINT OF CARE 203 MG/DL (70-110)
[2020-02-04 07:06] LABS: GLUCOMETER DEV NAME(LOC) 5S.2A; GLUCOSE,POINT OF CARE 134 MG/DL (70-110)
[2020-02-04] MEDS: PANTOPRAZOLE SODIUM 40 MG/VIAL IVP SCH ×2 (08:28→20:52)
[2020-02-04] MEDS: RIFAXIMIN 550 MG TABLET PO SCH ×2 (08:28→20:53)
[2020-02-04] MEDS: DiphenhydrAMINE HCL 25 MG CAPSULE PO PRN ×2 (08:28→20:54)
[2020-02-04] MEDS: PHYTONADIONE 10 MG/1 ML AMP SQ SCH (08:29)
[2020-02-04] MEDS: DOCUSATE SODIUM 100 MG CAPSULE PO SCH ×2 (08:34→20:53)
[2020-02-04] MEDS: MAGNESIUM SULFATE 2 GM/WATER 50 ML IV PRN (11:08)
[2020-02-04] MEDS: INSULIN LISPRO 100 UNITS/ML SQ PRN ×2 (12:00→18:04)
[2020-02-04 12:16] LABS: INR 2.1 (0.9-1.1); PROTHROMBIN TIME 21.2 SEC (9.4-11.6)
[2020-02-04] MEDS ORDERED: SODIUM CHLORIDE 0.9% 250 ML IV ONE (12:40)
[2020-02-04 19:11] LABS: GLUCOMETER DEV NAME(LOC) 5S.2A; GLUCOSE,POINT OF CARE 145 MG/DL (70-110)
[2020-02-04 19:11] LABS: GLUCOMETER DEV NAME(LOC) 5S.2A; GLUCOSE,POINT OF CARE 185 MG/DL (70-110)
[2020-02-04] MEDS: FUROSEMIDE 40 MG/4 ML VIAL IVP SCH (20:50)
[2020-02-04 22:04] LABS: GLUCOMETER DEV NAME(LOC) 5S.2A; GLUCOSE,POINT OF CARE 146 MG/DL (70-110)
[2020-02-05] VITALS (16 sets, daily range): BP systolic 97–194; BP diastolic 40–73
[2020-02-05] MEDS: LEVOFLOXACIN 500 MG/D5% WATER 100 ML IV SCH (04:11)
[2020-02-05] MEDS: PIPERACILLIN/TAZO 3.375 GM/D5W 50 ML IV SCH ×4 (05:38→23:42)
[2020-02-05] MEDS: SUCRALFATE 1 GM/10 ML SUSPENSION UDCUP PO SCH ×4 (05:38→20:27)
[2020-02-05] MEDS: OxyCODONE HCL/ACETAMINOPHEN 5-325 MG TABLET PO PRN (05:53)
[2020-02-05 07:03] LABS: PROTHROMBIN TIME 20.4 SEC (9.4-11.6)
[2020-02-05 07:12] LABS: ALBUMIN 2.6 g/dL (3.4-5.0)
[2020-02-05 08:26] LABS: BASOPHILS % (AUTO) 1.9 % (0.0-2.0); EOSINOPHILS % (AUTO) 1.8 % (1.0-6.0); HEMATOCRIT 23.5 % (36-46); HEMOGLOBIN 7.9 g/dL (12.0-16.0); LYMPHOCYTES # (AUTO) 1.8 K/uL (1.0-4.8); LYMPHOCYTES % (AUTO) 20.3 % (22.0-44.0); MEAN CORPUSCULAR HEMOGLOBIN 31.6 pg (26.0-34.0); MEAN CORPUSCULAR HGB CONC 33.5 G/dL (31.0-37.0); MEAN CORPUSCULAR VOLUME 94 fL (80-100); MONOCYTES # (AUTO) 1.2 K/uL (0.1-1.0); MONOCYTES % (AUTO) 13.4 % (2.0-9.0); NEUTROPHILS # (AUTO) 5.5 K/uL (1.8-7.7); NEUTROPHILS % (AUTO) 62.6 % (40.0-70.0); PLATELET COUNT (AUTO) 74 K/uL (150-450); RED BLOOD CELL COUNT(AUTO) 2.49 MIL/uL (4.00-5.20); RED CELL DISTRIBUTION WIDTH 21.9 % (11.5-14.5)
[2020-02-05 08:35] LABS: ALANINE AMINOTRANSFERASE 28 U/L (12-78); ALKALINE PHOSPHATASE 120 U/L (46-116); ANION GAP 10 mmol/L (8-16); ASPARTATE AMINOTRANSFERASE 64 U/L (15-37); BILIRUBIN,TOTAL 3.8 mg/dL (0.1-1.0); CALCIUM, TOTAL 8.7 mg/dL (8.8-10.5); CARBON DIOXIDE 27 mmol/L (22-29); CHLORIDE 99 mmol/L (98-107); CREATININE 0.94 mg/dL (0.60-1.30); GLOMERULAR FILTR. RATE CALC > 60 mL/min (>60); GLUCOSE,RANDOM 247 mg/dL (70-110); POTASSIUM 3.1 mmol/L (3.5-5.1); SODIUM SERUM 136 mmol/L (136-145); TOTAL PROTEIN, SERUM 6.2 g/dL (6.4-8.2); UREA NITROGEN, BLOOD 8 mg/dL (7-18)
[2020-02-05] MEDS ORDERED: LIDOCAINE/PF 1% 30 ML VIAL ONE (08:39)
[2020-02-05] MEDS ORDERED: THROMBIN, BOVINE 20000 UNITS/VIAL POWDER TP ONE (08:40)
[2020-02-05] MEDS ORDERED: RINGERS SOLUTION,LACTATED 1,000 ML IV ONE (08:45)
[2020-02-05] MEDS: DOCUSATE SODIUM 100 MG CAPSULE PO SCH ×2 (09:00→20:28)
[2020-02-05] MEDS: PHYTONADIONE 10 MG/1 ML AMP SQ SCH (09:00)
[2020-02-05] MEDS: PANTOPRAZOLE SODIUM 40 MG/VIAL IVP SCH ×2 (09:00→20:27)
[2020-02-05] MEDS: RIFAXIMIN 550 MG TABLET PO SCH ×2 (09:00→20:55)
[2020-02-05] MEDS ORDERED: SODIUM CHLORIDE 0.9% 500 ML IV ONE (09:33)
[2020-02-05] MEDS ORDERED: SODIUM CHLORIDE 0.9% 0 ML IV ONE (09:33)
[2020-02-05] MEDS ORDERED: SODIUM CHLORIDE 0.9% 1,000 ML ONE ×2 (10:18→10:28)
[2020-02-05] MEDS ORDERED: MEPERIDINE-PF 25 MG/ML VIAL IVP PRN (10:45)
[2020-02-05] MEDS ORDERED: HYDROmorphone 2 MG/ML SYRINGE IVP PRN ×2 (10:45→18:30)
[2020-02-05] MEDS ORDERED: FentaNYL CITRATE-PF 100 MCG/2 ML VIAL IVP PRN (10:45)
[2020-02-05 12:03] LABS: GLUCOMETER DEV NAME(LOC) 5N.2; GLUCOSE,POINT OF CARE 236 MG/DL (70-110)
[2020-02-05] MEDS: SPIRONOLACTONE 50 MG TABLET PO SCH (13:30)
[2020-02-05] MEDS ORDERED: PROTAMINE SULFATE 10 MG/ML 5 ML VIAL IVP ONE (14:30)
[2020-02-05] MEDS ORDERED: NiCARDipine HCL 25 MG in DEXTROSE 5%-WATER 240 ML IV ONE (14:45)
[2020-02-05] MEDS ORDERED: HYDROmorphone HCL 50 MG/NS/PF 100 ML IV PRN ×2 (15:35→17:06)
[2020-02-05] MEDS ORDERED: DEXTROSE 5%-0.45% SODIUM CHL 1,000 ML IV PRN ×2 (15:35→17:06)
[2020-02-05] MEDS ORDERED: NALOXONE HCL 0.4 MG/ML VIAL IVP PRN ×2 (15:45→17:15)
[2020-02-05] MEDS ORDERED: HYDROmorphone 2 MG/ML SYRINGE IM PRN (15:45)
[2020-02-05] MEDS ORDERED: NALOXONE HCL 0.4 MG/ML VIAL IM PRN ×2 (15:45→17:15)
[2020-02-05] MEDS: NiCARDipine HCL 25 MG in DEXTROSE 5%-WATER 240 ML IV PRN ×6 (16:05→19:15)
[2020-02-05] MEDS ORDERED: HYDROmorphone 2 MG/ML SYRINGE ONE (16:12)
[2020-02-05] MEDS ORDERED: MEPERIDINE-PF 25 MG/ML VIAL ONE (16:12)
[2020-02-05 17:39] LABS: BAND NEUTROPHILS % (MANUAL) 0 % (0-5); HEMATOCRIT 28.6 % (36-46); HEMOGLOBIN 9.7 g/dL (12.0-16.0); MEAN CORPUSCULAR HEMOGLOBIN 31.1 pg (26.0-34.0); MEAN CORPUSCULAR HGB CONC 33.8 G/dL (31.0-37.0); MEAN CORPUSCULAR VOLUME 92 fL (80-100); PLATELET COUNT (AUTO) 129 K/uL (150-450); RED BLOOD CELL COUNT(AUTO) 3.11 MIL/uL (4.00-5.20); RED CELL DISTRIBUTION WIDTH 20.2 % (11.5-14.5)
[2020-02-05 17:57] LABS: ANION GAP 9 mmol/L (8-16); CALCIUM, TOTAL 8.3 mg/dL (8.8-10.5); CARBON DIOXIDE 28 mmol/L (22-29); CHLORIDE 102 mmol/L (98-107); CREATININE 0.94 mg/dL (0.60-1.30); GLOMERULAR FILTR. RATE CALC > 60 mL/min (>60); GLUCOSE,RANDOM 173 mg/dL (70-110); POTASSIUM 3.1 mmol/L (3.5-5.1); SODIUM SERUM 139 mmol/L (136-145); UREA NITROGEN, BLOOD 7 mg/dL (7-18)
[2020-02-05 17:59] LABS: INR 1.6 (0.9-1.1); PROTHROMBIN TIME 16.3 SEC (9.4-11.6)
[2020-02-05 18:38] LABS: BASOPHILS % (MANUAL) 1 % (0-2); EOSINOPHILS % (MANUAL) 1 % (1-6); LYMPHOCYTES % (MANUAL) 17 % (22-44); MONOCYTES % (MANUAL) 11 % (2-9); SEGMENTED NEUTROPHILS % 70 % (40-70)
[2020-02-05] MEDS: OXYGEN THERAPY IH SCH (19:15)
[2020-02-05] MEDS: MAGNESIUM CHLORIDE 64 MG ER TABLET PO SCH (20:28)
[2020-02-06] VITALS: BP 122/44
[2020-02-06] MEDS ORDERED: SODIUM CHLORIDE 0.9% 250 ML IV ONE ×2 (00:37→14:01)
[2020-02-06] MEDS: DiphenhydrAMINE HCL 25 MG CAPSULE PO PRN ×2 (00:39→13:11)
[2020-02-06 01:40] LABS: GLUCOSE,POINT OF CARE 148 MG/DL (70-110)
[2020-02-06 04:00] VITALS: BP 113/56
[2020-02-06] MEDS: LEVOFLOXACIN 500 MG/D5% WATER 100 ML IV SCH (04:32)
[2020-02-06] MEDS: PIPERACILLIN/TAZO 3.375 GM/D5W 50 ML IV SCH ×3 (05:24→17:20)
[2020-02-06] MEDS: SUCRALFATE 1 GM/10 ML SUSPENSION UDCUP PO SCH ×4 (05:24→20:49)
[2020-02-06] MEDS ORDERED: METOPROLOL TARTRATE 5 MG/5 ML VIAL IVP ONE (05:27)
[2020-02-06] MEDS ORDERED: SUCCINYLCHOLINE CHLORIDE 20 MG/ML 10 ML VIAL IVP ONE (05:27)
[2020-02-06] MEDS ORDERED: PROPOFOL 1% 20 ML VIAL IVP ONE (05:27)
[2020-02-06] MEDS ORDERED: FentaNYL CITRATE-PF 100 MCG/2 ML VIAL IVP ONE (05:27)
[2020-02-06] MEDS ORDERED: HEPARIN SODIUM,PORCINE 1,000 UNITS/ML 10 ML VIAL IVP ONE (05:27)
[2020-02-06] MEDS ORDERED: ROCURONIUM BROMIDE 10 MG/ML 5 ML VIAL IVP ONE (05:27)
[2020-02-06 06:32] LABS: CALCIUM, TOTAL 8.3 mg/dL (8.8-10.5); CREATININE 1.13 mg/dL (0.60-1.30); PHOSPHORUS 3.2 mg/dL (2.5-4.9)
[2020-02-06 06:33] LABS: INR 1.8 (0.9-1.1); PROTHROMBIN TIME 17.7 SEC (9.4-11.6)
[2020-02-06 06:36] LABS: MAGNESIUM 0.9 mg/dL (1.80-2.40)
[2020-02-06] MEDS: POTASSIUM CHL 10 MEQ/WATER 50 ML IV PRN (06:57)
[2020-02-06 08:10] LABS: GLUCOSE,POINT OF CARE 137 MG/DL (70-110)
[2020-02-06] MEDS ORDERED: HYDROmorphone 2 MG/ML SYRINGE ONE (08:17)
[2020-02-06] MEDS: HYDROmorphone 2 MG/ML SYRINGE IVP PRN ×3 (08:46→20:50)
[2020-02-06] MEDS: ChlordiazePOXIDE HCL 10 MG CAPSULE PO PRN (08:46)
[2020-02-06] MEDS: SPIRONOLACTONE 50 MG TABLET PO SCH (08:47)
[2020-02-06] MEDS: MAGNESIUM CHLORIDE 64 MG ER TABLET PO SCH (08:47)
[2020-02-06] MEDS: FUROSEMIDE 20 MG TABLET PO SCH (08:47)
[2020-02-06] MEDS: DOCUSATE SODIUM 100 MG CAPSULE PO SCH ×2 (08:48→20:49)
[2020-02-06] MEDS: POTASSIUM CHLORIDE 20 MEQ ER TABLET PO PRN (08:48)
[2020-02-06] MEDS: RIFAXIMIN 550 MG TABLET PO SCH ×3 (08:48→20:49)
[2020-02-06] MEDS: PANTOPRAZOLE SODIUM 40 MG/VIAL IVP SCH ×2 (08:49→20:49)
[2020-02-06] MEDS: PHYTONADIONE 10 MG/1 ML AMP SQ SCH (08:50)
[2020-02-06] MEDS: OXYGEN THERAPY IH SCH (08:51)
[2020-02-06 10:51] LABS: BASOPHILS % (AUTO) 1.4 % (0.0-2.0); EOSINOPHILS % (AUTO) 2.2 % (1.0-6.0); HEMATOCRIT 26.8 % (36-46); HEMOGLOBIN 9.1 g/dL (12.0-16.0); LYMPHOCYTES # (AUTO) 1.4 K/uL (1.0-4.8); LYMPHOCYTES % (AUTO) 15.1 % (22.0-44.0); MEAN CORPUSCULAR HEMOGLOBIN 31.1 pg (26.0-34.0); MEAN CORPUSCULAR HGB CONC 33.9 G/dL (31.0-37.0); MEAN CORPUSCULAR VOLUME 92 fL (80-100); MONOCYTES % (AUTO) 10.8 % (2.0-9.0); NEUTROPHILS # (AUTO) 6.6 K/uL (1.8-7.7); NEUTROPHILS % (AUTO) 70.5 % (40.0-70.0); PLATELET COUNT (AUTO) 114 K/uL (150-450); RED BLOOD CELL COUNT(AUTO) 2.92 MIL/uL (4.00-5.20); RED CELL DISTRIBUTION WIDTH 20.2 % (11.5-14.5)
[2020-02-06] MEDS: INSULIN LISPRO 100 UNITS/ML SQ PRN (12:26)
[2020-02-06 12:31] LABS: GLUCOSE,POINT OF CARE 190 MG/DL (70-110)
[2020-02-06] MEDS: MAGNESIUM OXIDE 400 MG TABLET PO SCH ×2 (17:18→20:49)
[2020-02-06 18:57] LABS: GLUCOSE,POINT OF CARE 148 MG/DL (70-110)
[2020-02-06 20:51] VITALS: BP 131/56
[2020-02-07] VITALS (7 sets, daily range): BP systolic 114–131; BP diastolic 58–70
[2020-02-07] MEDS ORDERED: SODIUM CHLORIDE 0.9% 1,000 ML ONE (02:00)
[2020-02-07] MEDS: HYDROmorphone 2 MG/ML SYRINGE IVP PRN ×4 (02:02→20:36)
[2020-02-07] MEDS: PIPERACILLIN/TAZO 3.375 GM/D5W 50 ML IV SCH ×4 (02:05→17:20)
[2020-02-07] MEDS: ChlordiazePOXIDE HCL 10 MG CAPSULE PO PRN (04:43)
[2020-02-07] MEDS: LEVOFLOXACIN 500 MG/D5% WATER 100 ML IV SCH (05:15)
[2020-02-07] MEDS: DiphenhydrAMINE HCL 25 MG CAPSULE PO PRN ×2 (05:54→16:30)
[2020-02-07] MEDS: SUCRALFATE 1 GM/10 ML SUSPENSION UDCUP PO SCH ×4 (05:54→20:24)
[2020-02-07] MEDS: INSULIN LISPRO 100 UNITS/ML SQ PRN ×3 (05:58→20:47)
[2020-02-07 07:08] LABS: ANION GAP 11 mmol/L (8-16); CALCIUM, TOTAL 8.9 mg/dL (8.8-10.5); CARBON DIOXIDE 27 mmol/L (22-29); CHLORIDE 100 mmol/L (98-107); CREATININE 0.97 mg/dL (0.60-1.30); GLOMERULAR FILTR. RATE CALC > 60 mL/min (>60); GLUCOSE,RANDOM 214 mg/dL (70-110); PHOSPHORUS 2.3 mg/dL (2.5-4.9); POTASSIUM 3.8 mmol/L (3.5-5.1); SODIUM SERUM 138 mmol/L (136-145); UREA NITROGEN, BLOOD 8 mg/dL (7-18)
[2020-02-07 08:09] LABS: GLUCOMETER DEV NAME(LOC) 5S.1; GLUCOSE,POINT OF CARE 225 MG/DL (70-110)
[2020-02-07] MEDS: FUROSEMIDE 20 MG TABLET PO SCH (08:30)
[2020-02-07] MEDS: RIFAXIMIN 550 MG TABLET PO SCH ×2 (08:30→20:24)
[2020-02-07] MEDS: DOCUSATE SODIUM 100 MG CAPSULE PO SCH ×2 (08:30→20:24)
[2020-02-07] MEDS: MAGNESIUM OXIDE 400 MG TABLET PO SCH ×3 (08:30→20:24)
[2020-02-07 08:46] LABS: GLUCOSE,POINT OF CARE 133 MG/DL (70-110)
[2020-02-07] MEDS: SPIRONOLACTONE 50 MG TABLET PO SCH (10:39)
[2020-02-07] MEDS: PANTOPRAZOLE SODIUM 40 MG/VIAL IVP SCH ×2 (10:39→20:26)
[2020-02-07] MEDS: PHYTONADIONE 10 MG/1 ML AMP SQ SCH (10:39)
[2020-02-07] MEDS: OXYGEN THERAPY IH SCH ×3 (11:00→20:28)
[2020-02-07 16:44] LABS: BASOPHILS % (AUTO) 1.3 % (0.0-2.0); HEMATOCRIT 28.7 % (36-46); HEMOGLOBIN 9.7 g/dL (12.0-16.0); LYMPHOCYTES # (AUTO) 1.5 K/uL (1.0-4.8); MEAN CORPUSCULAR HEMOGLOBIN 30.9 pg (26.0-34.0); MEAN CORPUSCULAR HGB CONC 33.7 G/dL (31.0-37.0); MEAN CORPUSCULAR VOLUME 92 fL (80-100); MONOCYTES # (AUTO) 1.4 K/uL (0.1-1.0); MONOCYTES % (AUTO) 15.1 % (2.0-9.0); NEUTROPHILS % (AUTO) 65.6 % (40.0-70.0); PLATELET COUNT (AUTO) 103 K/uL (150-450); RED BLOOD CELL COUNT(AUTO) 3.13 MIL/uL (4.00-5.20); RED CELL DISTRIBUTION WIDTH 21.7 % (11.5-14.5)
[2020-02-07 16:58] LABS: INR 1.9 (0.9-1.1); PROTHROMBIN TIME 18.7 SEC (9.4-11.6)
[2020-02-07] MEDS ORDERED: MAGNESIUM SULFATE 3 GM in DEXTROSE 5%-WATER 100 ML IV ONE (19:30)
[2020-02-07] MEDS: POTASSIUM PHOS/SODIUM PHOS MIXTURE 1 POWDER PACKET PO SCH (20:25)
[2020-02-08] MEDS: PIPERACILLIN/TAZO 3.375 GM/D5W 50 ML IV SCH ×5 (00:42→23:49)
[2020-02-08] MEDS: ChlordiazePOXIDE HCL 10 MG CAPSULE PO PRN (00:56)
[2020-02-08 02:01] LABS: GLUCOMETER DEV NAME(LOC) 5S.1; GLUCOSE,POINT OF CARE 200 MG/DL (70-110)
[2020-02-08 02:01] LABS: GLUCOMETER DEV NAME(LOC) 5S.1; GLUCOSE,POINT OF CARE 135 MG/DL (70-110)
[2020-02-08 02:01] LABS: GLUCOMETER DEV NAME(LOC) 5S.1; GLUCOSE,POINT OF CARE 151 MG/DL (70-110)
[2020-02-08] MEDS: LEVOFLOXACIN 500 MG/D5% WATER 100 ML IV SCH (05:18)
[2020-02-08 05:48] VITALS: BP 128/77
[2020-02-08] MEDS: SUCRALFATE 1 GM/10 ML SUSPENSION UDCUP PO SCH ×4 (06:18→21:08)
[2020-02-08] MEDS: HYDROmorphone 2 MG/ML SYRINGE IVP PRN ×3 (06:19→23:51)
[2020-02-08] MEDS: PANTOPRAZOLE SODIUM 40 MG/VIAL IVP SCH ×2 (08:39→21:07)
[2020-02-08] MEDS: POTASSIUM PHOS/SODIUM PHOS MIXTURE 1 POWDER PACKET PO SCH (08:39)
[2020-02-08] MEDS: PHYTONADIONE 10 MG/1 ML AMP SQ SCH (08:39)
[2020-02-08] MEDS: SPIRONOLACTONE 50 MG TABLET PO SCH (08:39)
[2020-02-08] MEDS: DiphenhydrAMINE HCL 25 MG CAPSULE PO PRN ×2 (08:40→21:17)
[2020-02-08] MEDS: RIFAXIMIN 550 MG TABLET PO SCH ×2 (08:40→21:09)
[2020-02-08] MEDS: FUROSEMIDE 20 MG TABLET PO SCH (08:40)
[2020-02-08] MEDS: MAGNESIUM OXIDE 400 MG TABLET PO SCH ×3 (08:40→21:09)
[2020-02-08] MEDS: OXYGEN THERAPY IH SCH ×2 (08:41→20:00)
[2020-02-08] MEDS: DOCUSATE SODIUM 100 MG CAPSULE PO SCH ×2 (08:41→21:00)
[2020-02-08] MEDS: INSULIN LISPRO 100 UNITS/ML SQ PRN ×2 (12:10→21:31)
[2020-02-08 14:05] LABS: GLUCOMETER DEV NAME(LOC) 5S.1; GLUCOSE,POINT OF CARE 134 MG/DL (70-110)
[2020-02-08 14:05] LABS: GLUCOMETER DEV NAME(LOC) 5S.1; GLUCOSE,POINT OF CARE 199 MG/DL (70-110)
[2020-02-08 17:28] VITALS: BP 143/71
[2020-02-08] MEDS ORDERED: PHYTONADIONE 10 MG/1 ML AMP SQ ONE (17:30)
[2020-02-08 19:32] VITALS: BP 147/89
[2020-02-08 23:51] VITALS: BP 137/72
[2020-02-09] MEDS: DiphenhydrAMINE HCL 25 MG CAPSULE PO PRN ×2 (02:04→12:12)
[2020-02-09 04:04] VITALS: BP 119/69
[2020-02-09] MEDS: LEVOFLOXACIN 500 MG/D5% WATER 100 ML IV SCH (04:12)
[2020-02-09] MEDS: HYDROmorphone 2 MG/ML SYRINGE IVP PRN ×2 (04:19→10:03)
[2020-02-09] MEDS: PIPERACILLIN/TAZO 3.375 GM/D5W 50 ML IV SCH ×2 (05:55→12:00)
[2020-02-09] MEDS: SUCRALFATE 1 GM/10 ML SUSPENSION UDCUP PO SCH ×2 (05:55→12:10)
[2020-02-09] MEDS: INSULIN LISPRO 100 UNITS/ML SQ PRN (05:58)
[2020-02-09 07:13] LABS: ANION GAP 8 mmol/L (8-16); CARBON DIOXIDE 28 mmol/L (22-29); CHLORIDE 101 mmol/L (98-107); CREATININE 0.92 mg/dL (0.60-1.30); GLOMERULAR FILTR. RATE CALC > 60 mL/min (>60); GLUCOSE,RANDOM 145 mg/dL (70-110); PHOSPHORUS 2.9 mg/dL (2.5-4.9); POTASSIUM 3.5 mmol/L (3.5-5.1); SODIUM SERUM 137 mmol/L (136-145); UREA NITROGEN, BLOOD 8 mg/dL (7-18)
[2020-02-09 07:25] VITALS: BP 114/56
[2020-02-09] MEDS: OXYGEN THERAPY IH SCH (08:00)
[2020-02-09] MEDS: FUROSEMIDE 20 MG TABLET PO SCH (08:03)
[2020-02-09] MEDS: MAGNESIUM OXIDE 400 MG TABLET PO SCH (08:03)
[2020-02-09] MEDS: PANTOPRAZOLE SODIUM 40 MG/VIAL IVP SCH (08:04)
[2020-02-09] MEDS: RIFAXIMIN 550 MG TABLET PO SCH (08:04)
[2020-02-09] MEDS: PHYTONADIONE 10 MG/1 ML AMP SQ SCH (08:05)
[2020-02-09] MEDS: SPIRONOLACTONE 50 MG TABLET PO SCH (09:00)
[2020-02-09] MEDS: DOCUSATE SODIUM 100 MG CAPSULE PO SCH (09:00)
[2020-02-09] MEDS ORDERED: MAGNESIUM SULFATE 3 GM in DEXTROSE 5%-WATER 100 ML IV ONE (09:30)
[2020-02-09 11:57] VITALS: BP 119/63
[2020-02-09] MEDS: ChlordiazePOXIDE HCL 10 MG CAPSULE PO PRN (13:50)
[2020-02-09 15:30] VITALS: BP 139/70
[2020-02-09] MEDS ORDERED: PHYT100T PO (15:43)
[2020-02-09] MEDS ORDERED: CARAL PO (15:44)
[2020-02-09] MEDS ORDERED: SPIR50 PO (15:44)
[2020-02-09] MEDS ORDERED: RIFAX550 PO (15:45)
[2020-02-09] MEDS ORDERED: MAGN250T2 PO (15:46)
[2020-02-09] MEDS ORDERED: FURO20 PO (15:46)
[2020-02-09] MEDS ORDERED: LEVO-72 PO (15:47)
[2020-02-09] MEDS ORDERED: AMMO226L TP (15:47)
[2020-02-09] MEDS ORDERED: PANT40TA25 PO (15:47)
[2020-02-10 04:55] LABS: GLUCOMETER DEV NAME(LOC) 5S.1; GLUCOSE,POINT OF CARE 180 MG/DL (70-110)
[2020-02-10 04:55] LABS: GLUCOMETER DEV NAME(LOC) 5N.2; GLUCOSE,POINT OF CARE 155 MG/DL (70-110)
== END 2020-02-09 16:45 | disposition home or self-care (01) | DRG 710 ==
LOC: EMS 21:31 → 5N 01-23 01:12 → UNDOADMIN 01-23 01:12 → ICU 01-23 13:59 → 5S 02-01 01:15 → ICU 02-05 17:30 → 5S 02-07 01:15
PROVIDERS: ADMIT Internal Medicine; ATTEND Internal Medicine
PROC: 30233K1 Transfusion of Nonautologous Frozen Plasma into Peripheral Vein, Percutaneous Approach (ICD-10-PCS; 2020-01-23)
PROC: 30233N1 Transfusion of Nonautologous Red Blood Cells into Peripheral Vein, Percutaneous Approach (ICD-10-PCS; 2020-01-23)
PROC: 30233R1 Transfusion of Nonautologous Platelets into Peripheral Vein, Percutaneous Approach (ICD-10-PCS; 2020-01-23)
PROC: 30233M1 Transfusion of Nonautologous Plasma Cryoprecipitate into Peripheral Vein, Percutaneous Approach (ICD-10-PCS; 2020-01-23)
PROC: 0DB58ZX Excision of Esophagus, Via Natural or Artificial Opening Endoscopic, Diagnostic (ICD-10-PCS; principal; 2020-01-23 12:00)
PROC: 3E053GC Introduction of Other Therapeutic Substance into Peripheral Artery, Percutaneous Approach (ICD-10-PCS; 2020-02-02)
PROC: 04QK0ZZ Repair Right Femoral Artery, Open Approach (ICD-10-PCS; 2020-02-05)
DX: A41.9 Sepsis, unspecified organism (principal); R57.8 Other shock; J96.01 Acute respiratory failure with hypoxia; E11.00 Type 2 diabetes mellitus with hyperosmolarity without nonketotic hyperglycemic-hyperosmolar coma (NKHHC); E43 Unspecified severe protein-calorie malnutrition; K22.11 Ulcer of esophagus with bleeding; J18.9 Pneumonia, unspecified organism; K85.90 Acute pancreatitis without necrosis or infection, unspecified; E87.2 Acidosis; D62 Acute posthemorrhagic anemia; K92.0 Hematemesis; D68.9 Coagulation defect, unspecified; K76.6 Portal hypertension; D69.6 Thrombocytopenia, unspecified; N39.0 Urinary tract infection, site not specified; F10.20 Alcohol dependence, uncomplicated; K70.30 Alcoholic cirrhosis of liver without ascites; K72.90 Hepatic failure, unspecified without coma; K80.20 Calculus of gallbladder without cholecystitis without obstruction; N17.9 Acute kidney failure, unspecified; K22.8 Other specified diseases of esophagus; I72.4 Aneurysm of artery of lower extremity; J98.11 Atelectasis; N28.89 Other specified disorders of kidney and ureter; E87.6 Hypokalemia; E83.39 Other disorders of phosphorus metabolism; E83.42 Hypomagnesemia; E87.70 Fluid overload, unspecified; Z87.11 Personal history of peptic ulcer disease; Z68.26 Body mass index [BMI] 26.0-26.9, adult
CPT/HCPCS: 74022; 74176; 74177; 74220; 76700; 76705; 76881; 80074; 82570; 83605; 83735; 84100; 84132; 84145; 84300; 84540; 85007; 85014; 85018; 85049; 85384; 86850; 86900; 86901; 86923; 86927; 87040; 87081; 87086; 93005; 93926; 97162; 97165; 97535; 99291; C9113; G0378; G0480; J0330; J0461; J0690; J0696; J1170; J1644; J1815; J1940; J1956; J2060; J2175; J2250; J2270; J2354; J2370; J2543; J2704; J2720; J3010; J3370; J3430; J3475; J3480; J3490; J7030; J7040; J7050; J7060; J7120; P9012; P9016; P9017; P9035; P9046

== ENCOUNTER 2020-04-09 22:28 | Inpatient (IN) | payer MEDICAID ==
[~2020-04-09] VITALS: Ht 162.6 cm; Wt 50.3 kg
[~2020-04-09 22:28] MED LIST: AMMO226L TP; CARAL PO; FURO20 PO; LEVO-72 PO; MAGN250T2 PO; PANT-31 PO; PHYT100T PO; RIFAX550 PO; SPIR50 PO
[2020-04-09] MEDS ORDERED: SODIUM CHLORIDE 0.9% 1,000 ML IV ONE (23:00)
[2020-04-09] MEDS ORDERED: INSULIN REGULAR, HUMAN 100 UNITS/ML IVP ONE (23:00)
[2020-04-09 23:31] LABS: BASOPHILS % (AUTO) 0.5 % (0.0-2.0); EOSINOPHILS % (AUTO) 1.6 % (1.0-6.0); HEMATOCRIT 39.4 % (36-46); HEMOGLOBIN 12.5 g/dL (12.0-16.0); LYMPHOCYTES # (AUTO) 1.6 K/uL (1.0-4.8); LYMPHOCYTES % (AUTO) 33.5 % (22.0-44.0); MEAN CORPUSCULAR HEMOGLOBIN 29.4 pg (26.0-34.0); MEAN CORPUSCULAR HGB CONC 31.8 G/dL (31.0-37.0); MEAN CORPUSCULAR VOLUME 92 fL (80-100); MONOCYTES # (AUTO) 0.6 K/uL (0.1-1.0); MONOCYTES % (AUTO) 11.7 % (2.0-9.0); NEUTROPHILS # (AUTO) 2.5 K/uL (1.8-7.7); NEUTROPHILS % (AUTO) 52.7 % (40.0-70.0); RED BLOOD CELL COUNT(AUTO) 4.27 MIL/uL (4.00-5.20); RED CELL DISTRIBUTION WIDTH 13.9 % (11.5-14.5)
[2020-04-09 23:51] LABS: ALANINE AMINOTRANSFERASE 55 U/L (12-78); ALBUMIN 3.2 g/dL (3.4-5.0); ALKALINE PHOSPHATASE 293 U/L (46-116); ANION GAP 13 mmol/L (8-16); ASPARTATE AMINOTRANSFERASE 106 U/L (15-37); BILIRUBIN,TOTAL 2.9 mg/dL (0.1-1.0); CALCIUM, TOTAL 10.5 mg/dL (8.8-10.5); CARBON DIOXIDE 28 mmol/L (22-29); CHLORIDE 82 mmol/L (98-107); CREATININE 1.55 mg/dL (0.60-1.30); GLOMERULAR FILTR. RATE CALC 42 mL/min (>60); POTASSIUM 4.2 mmol/L (3.5-5.1); TOTAL PROTEIN, SERUM 9.4 g/dL (6.4-8.2); UREA NITROGEN, BLOOD 17 mg/dL (7-18)
[2020-04-10 00:03] LABS: SODIUM SERUM 123 mmol/L (136-145)
[2020-04-10 00:31] LABS: PLATELET MORPHOLOGY COMMENT LARGE PLTS PRESENT
[2020-04-10 00:33] LABS: PLATELET COUNT (AUTO) 77 K/uL (150-450)
[2020-04-10 00:35] LABS: GLUCOSE,RANDOM 840 mg/dL (70-110)
[2020-04-10 00:39] LABS: ACETONE,BLOOD NEGATIVE (NEGATIVE)
[2020-04-10 00:40] LABS: APPEARANCE,URINE CLEAR (CLEAR); BILIRUBIN,URINE NEGATIVE (NEGATIVE); GLUCOSE, URINE (UA) >=1000 mg/dL (NEGATIVE); KETONES,URINE NEGATIVE (NEGATIVE); LEUKOCYTE ESTERASE ,URINE NEGATIVE (NEGATIVE); NITRATE,URINE NEGATIVE (NEGATIVE); OCCULT BLOOD,URINE NEGATIVE (NEGATIVE); PH,URINE 5.5 (5.0-8.0); PROTEIN,URINE NEGATIVE (NEGATIVE); UROBILINOGEN,URINE 0.2 mg/dL (<=1.0)
[2020-04-10 00:49] LABS: AMPHET/METH SCREEN,URINE NEGATIVE (NEGATIVE); BARBITURATE SCREEN, URINE NEGATIVE (NEGATIVE); BENZODIAZEPINES SCREEN,URINE NEGATIVE (NEGATIVE); CANNABINOID SCREEN,URINE NEGATIVE (NEGATIVE); COCAINE SCREEN,URINE NEGATIVE (NEGATIVE); METHADONE SCREEN, URINE NEGATIVE (NEGATIVE); OPIATE SCREEN,URINE NEGATIVE (NEGATIVE)
[2020-04-10 00:54] LABS: PHENCYCLIDINE SCREEN,URINE NEGATIVE (NEGATIVE)
[2020-04-10 01:02] LABS: BACTERIA,URINE Few /HPF (None Seen); RBC,URINE 0-2 /HPF (0-2); SQUAMOUS EPITHELIAL CELL,UR Few /LPF (None Seen); WBC,URINE 0-2 /HPF (0-5)
[2020-04-10] MEDS ORDERED: SODIUM CHLORIDE 0.9% 1,000 ML IV ONE ×3 (01:30→08:45)
[2020-04-10 02:15] LABS: GLUCOSE,POINT OF CARE 454 MG/DL (70-110)
[2020-04-10] MEDS ORDERED: DEXTROSE 50%-WATER 25 GM/50 ML SYRINGE IVP PRN ×2 (02:15→03:00)
[2020-04-10] MEDS ORDERED: ACETAMINOPHEN 325 MG TABLET PO PRN ×2 (02:15→08:45)
[2020-04-10] MEDS ORDERED: 0.9% SODIUM CHLORIDE 10 ML SYRINGE IVP PRN (02:15)
[2020-04-10] MEDS ORDERED: ONDANSETRON HCL 4 MG/2 ML VIAL IVP PRN (02:15)
[2020-04-10 02:35] VITALS: BP 133/54
[2020-04-10 03:26] LABS: GLUCOMETER DEV NAME(LOC) 5S.1; GLUCOSE,POINT OF CARE 473 MG/DL (70-110)
[2020-04-10 04:33] VITALS: BP 120/52
[2020-04-10] MEDS: INSULIN LISPRO 100 UNITS/ML SQ PRN ×4 (06:46→21:26)
[2020-04-10 07:24] VITALS: BP 129/59
[2020-04-10] MEDS ORDERED: MAGNESIUM HYDROXIDE SUSPENSION 30 ML UDCUP PO PRN (08:45)
[2020-04-10] MEDS: INSULIN GLARGINE,HUM.REC.ANLOG 100 UNITS/ML SQ SCH ×2 (09:07→21:26)
[2020-04-10] MEDS: FAMOTIDINE 20 MG TABLET PO SCH (09:08)
[2020-04-10] MEDS: HEPARIN SODIUM,PORCINE 5,000 UNITS/ML VIAL SQ SCH ×2 (09:08→21:25)
[2020-04-10 10:58] VITALS: BP 122/66
[2020-04-10 11:46] LABS: GLUCOMETER DEV NAME(LOC) 5S.1; GLUCOSE,POINT OF CARE 286 MG/DL (70-110)
[2020-04-10 11:46] LABS: GLUCOMETER DEV NAME(LOC) 5S.1; GLUCOSE,POINT OF CARE 378 MG/DL (70-110)
[2020-04-10 15:49] VITALS: BP 112/54
[2020-04-10 20:42] VITALS: BP 130/88
[2020-04-10] MEDS: ZOLPIDEM TARTRATE 10 MG TABLET PO PRN (22:48)
[2020-04-11 00:05] VITALS: BP 124/63
[2020-04-11 06:05] VITALS: BP 126/65
[2020-04-11] MEDS: INSULIN LISPRO 100 UNITS/ML SQ PRN ×4 (06:05→20:50)
[2020-04-11 07:39] LABS: BASOPHILS % (AUTO) 0.8 % (0.0-2.0); EOSINOPHILS % (AUTO) 2.1 % (1.0-6.0); HEMOGLOBIN 10.7 g/dL (12.0-16.0); LYMPHOCYTES # (AUTO) 2.1 K/uL (1.0-4.8); LYMPHOCYTES % (AUTO) 47.3 % (22.0-44.0); MEAN CORPUSCULAR HEMOGLOBIN 30.2 pg (26.0-34.0); MEAN CORPUSCULAR HGB CONC 33.6 G/dL (31.0-37.0); MEAN CORPUSCULAR VOLUME 90 fL (80-100); MONOCYTES # (AUTO) 0.5 K/uL (0.1-1.0); MONOCYTES % (AUTO) 11.3 % (2.0-9.0); NEUTROPHILS # (AUTO) 1.7 K/uL (1.8-7.7); NEUTROPHILS % (AUTO) 38.5 % (40.0-70.0); RED BLOOD CELL COUNT(AUTO) 3.55 MIL/uL (4.00-5.20); RED CELL DISTRIBUTION WIDTH 13.6 % (11.5-14.5)
[2020-04-11 07:55] LABS: ALANINE AMINOTRANSFERASE 39 U/L (12-78); ALBUMIN 2.3 g/dL (3.4-5.0); ALKALINE PHOSPHATASE 208 U/L (46-116); ANION GAP 7 mmol/L (8-16); ASPARTATE AMINOTRANSFERASE 80 U/L (15-37); BILIRUBIN,TOTAL 1.7 mg/dL (0.1-1.0); CALCIUM, TOTAL 8.5 mg/dL (8.8-10.5); CARBON DIOXIDE 26 mmol/L (22-29); CHLORIDE 97 mmol/L (98-107); CREATININE 1.02 mg/dL (0.60-1.30); GLOMERULAR FILTR. RATE CALC > 60 mL/min (>60); GLUCOSE,RANDOM 302 mg/dL (70-110); POTASSIUM 3.6 mmol/L (3.5-5.1); SODIUM SERUM 130 mmol/L (136-145); UREA NITROGEN, BLOOD 9 mg/dL (7-18)
[2020-04-11] MEDS: FAMOTIDINE 20 MG TABLET PO SCH (09:03)
[2020-04-11] MEDS: HEPARIN SODIUM,PORCINE 5,000 UNITS/ML VIAL SQ SCH ×2 (09:03→20:43)
[2020-04-11] MEDS: INSULIN GLARGINE,HUM.REC.ANLOG 100 UNITS/ML SQ SCH ×2 (09:03→20:50)
[2020-04-11 09:09] LABS: PLATELET COUNT (AUTO) 54 K/uL (150-450)
[2020-04-11 12:12] LABS: GLUCOMETER DEV NAME(LOC) 5S.1; GLUCOSE,POINT OF CARE 454 MG/DL (70-110)
[2020-04-11 12:12] LABS: GLUCOMETER DEV NAME(LOC) 5S.1; GLUCOSE,POINT OF CARE 430 MG/DL (70-110)
[2020-04-11 13:16] VITALS: BP 104/49
[2020-04-11 16:31] VITALS: BP 112/56
[2020-04-11 17:10] LABS: GLUCOMETER DEV NAME(LOC) 5N.1; GLUCOSE,POINT OF CARE 366 MG/DL (70-110)
[2020-04-11 19:46] VITALS: BP 118/52
[2020-04-11 20:23] LABS: GLUCOMETER DEV NAME(LOC) 5S.1; GLUCOSE,POINT OF CARE 529 MG/DL (70-110)
[2020-04-11 20:23] LABS: GLUCOMETER DEV NAME(LOC) 5S.1; GLUCOSE,POINT OF CARE 287 MG/DL (70-110)
[2020-04-11 20:33] LABS: GLUCOMETER DEV NAME(LOC) 5S.2A; GLUCOSE,POINT OF CARE 303 MG/DL (70-110)
[2020-04-11] MEDS: ZOLPIDEM TARTRATE 10 MG TABLET PO PRN (20:56)
[2020-04-11 23:43] VITALS: BP 109/58
[2020-04-12 00:34] LABS: GLUCOMETER DEV NAME(LOC) 5N.1; GLUCOSE,POINT OF CARE 480 MG/DL (70-110)
[2020-04-12] MEDS ORDERED: INSULIN LISPRO 100 UNITS/ML SQ ONE (01:00)
[2020-04-12 05:43] LABS: GLUCOMETER DEV NAME(LOC) 5N.1; GLUCOSE,POINT OF CARE 95 MG/DL (70-110)
[2020-04-12 05:48] VITALS: BP 117/56
[2020-04-12 06:12] LABS: GLUCOMETER DEV NAME(LOC) 5N.3; GLUCOSE,POINT OF CARE 229 MG/DL (70-110)
[2020-04-12] MEDS: INSULIN LISPRO 100 UNITS/ML SQ PRN ×3 (06:13→16:48)
[2020-04-12] MEDS: INSULIN GLARGINE,HUM.REC.ANLOG 100 UNITS/ML SQ SCH (09:38)
[2020-04-12] MEDS: HEPARIN SODIUM,PORCINE 5,000 UNITS/ML VIAL SQ SCH (09:40)
[2020-04-12] MEDS: FAMOTIDINE 20 MG TABLET PO SCH (09:40)
[2020-04-12 11:31] VITALS: BP 112/61
[2020-04-12] MEDS ORDERED: INSULIN LANTUS SQ (12:04)
[2020-04-12 17:03] LABS: GLUCOMETER DEV NAME(LOC) 5N.1; GLUCOSE,POINT OF CARE 426 MG/DL (70-110)
[2020-04-12 17:03] LABS: GLUCOMETER DEV NAME(LOC) 5N.1; GLUCOSE,POINT OF CARE 284 MG/DL (70-110)
== END 2020-04-12 18:45 | disposition home or self-care (01) | DRG 420 ==
LOC: EMS 22:30 → 5S 04-10 01:31
PROVIDERS: ADMIT Internal Medicine; ATTEND Internal Medicine
DX: E11.65 Type 2 diabetes mellitus with hyperglycemia (principal); E43 Unspecified severe protein-calorie malnutrition; N17.9 Acute kidney failure, unspecified; F17.210 Nicotine dependence, cigarettes, uncomplicated; E87.1 Hypo-osmolality and hyponatremia; Z91.19 Patient's noncompliance with other medical treatment and regimen; Z79.4 Long term (current) use of insulin; Z68.1 Body mass index [BMI] 19.9 or less, adult
CPT/HCPCS: 80074; 82948; 83930; 93005; 99291; J1644; J1815; J7030

== ENCOUNTER 2020-05-13 12:41 | Emergency (ER) | payer MEDICAID ==
[~2020-05-13] VITALS: Ht 162.6 cm; Wt 50.0 kg
[~2020-05-13 12:41] MED LIST changes: +INSULIN LANTUS SQ
[2020-05-13] MEDS ORDERED: INSULIN REGULAR, HUMAN 100 UNITS/ML IVP ONE ×2 (16:00→20:30)
[2020-05-13] MEDS ORDERED: SODIUM CHLORIDE 0.9% 1,000 ML IV ONE ×2 (16:00→19:15)
[2020-05-13 16:09] LABS: APPEARANCE,URINE CLEAR (CLEAR); BILIRUBIN,URINE NEGATIVE (NEGATIVE); GLUCOSE, URINE (UA) >=1000 mg/dL (NEGATIVE); KETONES,URINE NEGATIVE (NEGATIVE); LEUKOCYTE ESTERASE ,URINE NEGATIVE (NEGATIVE); NITRATE,URINE NEGATIVE (NEGATIVE); OCCULT BLOOD,URINE NEGATIVE (NEGATIVE); PROTEIN,URINE NEGATIVE (NEGATIVE); UROBILINOGEN,URINE 0.2 mg/dL (<=1.0)
[2020-05-13 16:21] LABS: BACTERIA,URINE None Seen /HPF (None Seen); RBC,URINE None Seen /HPF (0-2); SQUAMOUS EPITHELIAL CELL,UR Few /LPF (None Seen); WBC,URINE 0-2 /HPF (0-5)
[2020-05-13 16:26] LABS: EOSINOPHILS % (AUTO) 0.8 % (1.0-6.0); HEMATOCRIT 37.5 % (36-46); HEMOGLOBIN 11.6 g/dL (12.0-16.0); LYMPHOCYTES # (AUTO) 1.9 K/uL (1.0-4.8); LYMPHOCYTES % (AUTO) 40.9 % (22.0-44.0); MEAN CORPUSCULAR HEMOGLOBIN 27.9 pg (26.0-34.0); MEAN CORPUSCULAR HGB CONC 31.1 G/dL (31.0-37.0); MEAN CORPUSCULAR VOLUME 90 fL (80-100); MONOCYTES # (AUTO) 0.6 K/uL (0.1-1.0); MONOCYTES % (AUTO) 13.2 % (2.0-9.0); NEUTROPHILS # (AUTO) 2.1 K/uL (1.8-7.7); NEUTROPHILS % (AUTO) 44.1 % (40.0-70.0); RED BLOOD CELL COUNT(AUTO) 4.17 MIL/uL (4.00-5.20); RED CELL DISTRIBUTION WIDTH 13.9 % (11.5-14.5)
[2020-05-13 16:45] LABS: INR 1.4 (0.9-1.1); PROTHROMBIN TIME 14.2 SEC (9.4-11.6)
[2020-05-13 17:00] LABS: PLATELET COUNT (AUTO) 82 K/uL (150-450)
[2020-05-13 17:01] LABS: B-TYPE NATRIURETIC PEPTIDE 95 pg/mL (0-100)
[2020-05-13 17:37] LABS: ALANINE AMINOTRANSFERASE 43 U/L (12-78); ALKALINE PHOSPHATASE 421 U/L (46-116); ANION GAP 15 mmol/L (8-16); ASPARTATE AMINOTRANSFERASE 52 U/L (15-37); BILIRUBIN,TOTAL 1.8 mg/dL (0.1-1.0); CALCIUM, TOTAL 9.7 mg/dL (8.8-10.5); CARBON DIOXIDE 22 mmol/L (22-29); CHLORIDE 93 mmol/L (98-107); CREATINE KINASE, TOTAL ONLY 228 U/L (26-192); GLOMERULAR FILTR. RATE CALC 56 mL/min (>60); POTASSIUM 4.3 mmol/L (3.5-5.1); SODIUM SERUM 130 mmol/L (136-145); TOTAL PROTEIN, SERUM 8.6 g/dL (6.4-8.2); UREA NITROGEN, BLOOD 15 mg/dL (7-18)
[2020-05-13 17:38] LABS: ACETONE,BLOOD NEGATIVE (NEGATIVE)
[2020-05-13 17:40] LABS: GLUCOSE,RANDOM 725 mg/dL (70-110)
[2020-05-13 18:08] LABS: GLUCOSE,POINT OF CARE > 600 MG/DL (70-110)
[2020-05-13 19:07] LABS: GLUCOSE,POINT OF CARE 382 MG/DL (70-110)
[2020-05-13] MEDS ORDERED: INSULIN GLARGINE,HUM.REC.ANLOG 100 UNITS/ML SQ ONE (19:15)
[2020-05-13 20:37] LABS: GLUCOSE,POINT OF CARE 414 MG/DL (70-110)
[2020-05-13 23:30] LABS: GLUCOSE,POINT OF CARE 258 MG/DL (70-110)
[2020-05-13 23:53] VITALS: BP 134/74
== END 2020-05-13 23:53 | disposition home or self-care (01) ==
LOC: EMS 12:43
DX: E11.65 Type 2 diabetes mellitus with hyperglycemia (principal); Z79.4 Long term (current) use of insulin; Z79.899 Other long term (current) drug therapy
CPT/HCPCS: 36415; 71045; 80053; 81001; 82009; 82550; 82962; 83880; 84484; 85025; 85610; 85730; 93005; 96361; 96372; 96374; 96376; 99285; J1815 ×2; J7030

== ENCOUNTER 2020-11-10 00:05 | Emergency (ER) | payer MEDICAID ==
[~2020-11-10] VITALS: Ht 162.6 cm; Wt 56.4 kg
[~2020-11-10 00:05] MED LIST changes: +AMLO-257 PO; -LEVO-72 PO
[2020-11-10 00:12] VITALS: BP 148/61
[2020-11-10] MEDS ORDERED: ACETAMINOPHEN 500 MG TABLET PO ONE (03:15)
[2020-11-10] MEDS ORDERED: LIDOCAINE 5% TRANSDERMAL PATCH TD ONE (03:15)
== END 2020-11-10 03:35 | disposition home or self-care (01) ==
LOC: EMS 00:07
DX: M54.6 Pain in thoracic spine (principal); E11.9 Type 2 diabetes mellitus without complications; Z79.4 Long term (current) use of insulin; Z79.899 Other long term (current) drug therapy

== ENCOUNTER 2020-12-06 18:55 | Emergency (ER) | payer MEDICAID ==
[~2020-12-06] VITALS: Ht 162.6 cm; Wt 54.5 kg
[~2020-12-06 18:55] MED LIST changes: -CARAL PO
[2020-12-06 19:29] LABS: GLUCOSE,POINT OF CARE 420 MG/DL (70-110)
[2020-12-06] MEDS ORDERED: INSULIN REGULAR, HUMAN 100 UNITS/ML SQ ONE (22:30)
[2020-12-06] MEDS ORDERED: INSULIN GLARGINE,HUM.REC.ANLOG 100 UNITS/ML SQ ONE (22:30)
[2020-12-06 23:17] LABS: EOSINOPHILS % (AUTO) 0.9 % (1.0-6.0); HEMATOCRIT 33.9 % (36-46); HEMOGLOBIN 11.1 g/dL (12.0-16.0); LYMPHOCYTES # (AUTO) 1.8 K/uL (1.0-4.8); LYMPHOCYTES % (AUTO) 34.3 % (22.0-44.0); MEAN CORPUSCULAR HEMOGLOBIN 30.5 pg (26.0-34.0); MEAN CORPUSCULAR HGB CONC 32.9 G/dL (31.0-37.0); MEAN CORPUSCULAR VOLUME 93 fL (80-100); MONOCYTES # (AUTO) 0.7 K/uL (0.1-1.0); MONOCYTES % (AUTO) 13.8 % (2.0-9.0); NEUTROPHILS # (AUTO) 2.6 K/uL (1.8-7.7); RED BLOOD CELL COUNT(AUTO) 3.66 MIL/uL (4.00-5.20); RED CELL DISTRIBUTION WIDTH 15.9 % (11.5-14.5)
[2020-12-06 23:42] LABS: ANION GAP 11 mmol/L (8-16); CALCIUM, TOTAL 7.9 mg/dL (8.8-10.5); CARBON DIOXIDE 28 mmol/L (22-29); CHLORIDE 102 mmol/L (98-107); CREATININE 0.95 mg/dL (0.60-1.30); GLOMERULAR FILTR. RATE CALC > 60 mL/min (>60); POTASSIUM 3.3 mmol/L (3.5-5.1); SODIUM SERUM 141 mmol/L (136-145); UREA NITROGEN, BLOOD 9 mg/dL (7-18)
[2020-12-06 23:59] LABS: GLUCOSE,RANDOM 425 mg/dL (70-110)
[2020-12-07] MEDS ORDERED: ACETAMINOPHEN 500 MG TABLET PO ONE
[2020-12-07] MEDS ORDERED: KETOROLAC TROMETHAMINE 30 MG/ML VIAL IVP ONE
[2020-12-07 00:20] LABS: PLATELET COUNT (AUTO) 48 K/uL (150-450)
[2020-12-07 00:29] LABS: GLUCOSE,POINT OF CARE 169 MG/DL (70-110)
[2020-12-07] MEDS ORDERED: HYDROCODONE/ACETAMINOPHEN 5-325 MG TABLET PO ONE (00:45)
[2020-12-07] MEDS ORDERED: CEPHALEXIN MONOHYDRATE 500 MG CAPSULE PO ONE (00:45)
[2020-12-07 01:03] VITALS: BP 127/69
== END 2020-12-07 01:16 | disposition home or self-care (01) ==
LOC: EMS 18:55
DX: E11.65 Type 2 diabetes mellitus with hyperglycemia (principal); L03.115 Cellulitis of right lower limb; Z79.4 Long term (current) use of insulin; Z79.899 Other long term (current) drug therapy
CPT/HCPCS: 36415; 80048; 82962; 85025; 96372; 96374; 99284; J1815 ×2; J1885

== ENCOUNTER 2021-03-09 17:58 | Emergency (ER) | payer MEDICAID ==
[~2021-03-09] VITALS: Ht 167.6 cm; Wt 54.5 kg
[~2021-03-09 17:58] MED LIST changes: +AMMO225L14 TP; -AMMO226L TP; +INSLAN SQ; +INSU100V SQ; -INSULIN LANTUS SQ; -MAGN250T2 PO; +MAGN400T7 PO; +SILV20CR11 TP
[2021-03-09] MEDS ORDERED: INSULIN REGULAR, HUMAN 100 UNITS/ML IVP ONE ×2 (20:45→22:00)
[2021-03-09] MEDS ORDERED: SODIUM CHLORIDE 0.9% 1,000 ML IV ONE ×2 (20:45→22:00)
[2021-03-09 21:45] LABS: BASOPHILS % (AUTO) 0.8 % (0.0-2.0); EOSINOPHILS % (AUTO) 1.5 % (1.0-6.0); HEMATOCRIT 25.9 % (36-46); HEMOGLOBIN 8.5 g/dL (12.0-16.0); LYMPHOCYTES # (AUTO) 2.3 K/uL (1.0-4.8); LYMPHOCYTES % (AUTO) 48.8 % (22.0-44.0); MEAN CORPUSCULAR HEMOGLOBIN 31.4 pg (26.0-34.0); MEAN CORPUSCULAR HGB CONC 32.7 G/dL (31.0-37.0); MEAN CORPUSCULAR VOLUME 96 fL (80-100); MONOCYTES # (AUTO) 0.3 K/uL (0.1-1.0); NEUTROPHILS % (AUTO) 41.9 % (40.0-70.0); PLATELET COUNT (AUTO) 69 K/uL (150-450); RED CELL DISTRIBUTION WIDTH 16.4 % (11.5-14.5)
[2021-03-09 21:46] LABS: ALBUMIN 2.1 g/dL (3.4-5.0); BILIRUBIN,TOTAL 1.6 mg/dL (0.1-1.0); CALCIUM, TOTAL 7.9 mg/dL (8.8-10.5); CREATININE 1.14 mg/dL (0.60-1.30); POTASSIUM 3.4 mmol/L (3.5-5.1); TOTAL PROTEIN, SERUM 6.8 g/dL (6.4-8.2)
[2021-03-09 23:31] LABS: GLUCOSE,POINT OF CARE 318 MG/DL (70-110)
[2021-03-09 23:31] LABS: GLUCOSE,POINT OF CARE 463 MG/DL (70-110)
[2021-03-10 01:19] LABS: GLUCOSE,POINT OF CARE 240 MG/DL (70-110)
[2021-03-10 01:55] VITALS: BP 128/66
== END 2021-03-10 02:16 | disposition home or self-care (01) ==
LOC: EMS 18:02
DX: E11.65 Type 2 diabetes mellitus with hyperglycemia (principal); F10.229 Alcohol dependence with intoxication, unspecified; D69.6 Thrombocytopenia, unspecified; F17.210 Nicotine dependence, cigarettes, uncomplicated; Y90.8 Blood alcohol level of 240 mg/100 ml or more; Z79.4 Long term (current) use of insulin; Z79.899 Other long term (current) drug therapy
CPT/HCPCS: 36415; 80053; 82962; 85025; 93005; 96361; 96374; 96376; 99285; G0480; J1815; J7030